=== PATIENT | male | born 1960 | race Caucasian/White ===

== ENCOUNTER 2017-06-18 11:27 | Inpatient (IN) | payer BC, OTHER ==
[2017-06-18] VITALS (13 sets, daily range): BP systolic 105–141; BP diastolic 66–87; PULSE 55–67; TEMP 36.6–36.7; O2SAT 94–99; Ht 175.3 cm; Wt 74.7 kg
[~2017-06-18] VITALS: Ht 175.3 cm; Wt 74.7 kg
[2017-06-18] MEDS ORDERED: NITROGLYCERIN 0.4 MG SL PER TAB CHARGE ONE (11:37)
[2017-06-18] MEDS ORDERED: CLOPIDOGREL BISULFATE 300 MG TAB PO ONE (11:40)
[2017-06-18] MEDS ORDERED: NiCARDipine HCL INJ 2.5 MG/ML 10 ML AMP ONE (11:56)
[2017-06-18] MEDS ORDERED: HEPARIN SOD (PORCINE) 1000 UNIT/ML 10 ML VIAL ONE (11:56)
[2017-06-18] MEDS ORDERED: NITROGLYCERIN/D5W 100MCG/ML 20ML SYR ONE (11:56)
[2017-06-18 11:57] LABS: ISTAT IONIZED CALCIUM 1.24 mmol/l (1.12-1.32); ISTAT POTASSIUM 3.6 mEq/L (3.3-5.0)
[2017-06-18] MEDS ORDERED: MIDAZOLAM HCL 1 MG/ML 2ML VIAL ONE (11:57)
[2017-06-18] MEDS ORDERED: FENTANYL CITRATE INJ 50 MCG/1 ML 2 ML VIAL ONE (11:57)
[2017-06-18] MEDS ORDERED: LIDOCAINE HCL 1% 20 ML VIAL ONE (11:57)
[2017-06-18] MEDS ORDERED: NITROGLYCERIN 0.4 MG SL PER TAB CHARGE SL PRN ×2 (12:00→13:15)
[2017-06-18 12:02] LABS: BASO % 0.2 %; BASO ABS # 0.02 K/uL (0-0.2); EOS % 1.2 %; EOS ABS # 0.12 K/uL (0-0.5); HEMATOCRIT 42.9 % (42-52); HEMOGLOBIN 15.6 g/dL (14.0-18.0); IG# 0.02 K/uL (0.00-0.02); LYMPH % 45.6 %; LYMPH ABS # 4.61 K/uL (1.2-3.4); MEAN CELL VOLUME 84.8 fL (80-100); MEAN CORPUSCULAR HEMOGLOBIN 30.8 pg (25-34); MEAN CORPUSCULAR HGB CONC 36.4 g/dl (32-36); MONO % 8.7 %; MONO ABS # 0.88 K/uL (0.11-0.59); NEUT % 44.1 %; NEUT ABS # 4.45 K/uL (1.4-6.5); PLATELET COUNT 185 K/uL (130-400); RED CELL DISTRIBUTION WIDTH CV 13.2 % (11.5-14.5); RED CELL DISTRIBUTION WIDTH SD 39.8 fL (36.4-46.3)
--- NOTE | 2017-06-18 12:02 | DIAGNOSTIC IMAGING REPORT ---
CHEST ONE VIEW PORTABLE HISTORY: 57 years-old Male 1 acute atypical chest pain COMPARISON: None available TECHNIQUE: Portable AP view of the chest FINDINGS: Cardiomediastinal and hilar silhouettes are within normal limits. No pneumothorax, pleural effusion, focal airspace consolidation or overt pulmonary edema. The bones of the chest appear grossly intact. IMPRESSION: No acute process. The above report was generated using voice recognition software. It may contain grammatical, syntax or spelling errors. Electronically signed by: Sy Liu M.D. 06/18/2017 12:00 PM Dictated Date/Time: 06/18/2017 11:59 AM
[2017-06-18 12:08] LABS: PTT PATIENT 25.2 SECONDS (21.0-31.0)
[2017-06-18 12:22] LABS: ALT/SGPT 25 U/L (12-78); AST/SGOT 13 U/L (15-37); BLOOD UREA NITROGEN 17 mg/dl (7-18); CALCIUM 8.7 mg/dl (8.5-10.1); CARBON DIOXIDE 26 mmol/L (21-32); CREATININE 1.05 mg/dl (0.60-1.40); GLUCOSE 104 mg/dl (70-99); LIPASE 106 U/L (73-393); POTASSIUM 3.6 mmol/L (3.5-5.1); SODIUM 142 mmol/L (136-145)
[2017-06-18 12:28] LABS: ALKALINE PHOSPHATASE 103 U/L (45-117); CKMB 1.4 ng/ml (0.5-3.6)
[2017-06-18] MEDS ORDERED: TICAGRELOR 90 MG TAB PO ONE (12:55)
--- NOTE | 2017-06-18 12:57 | EMERGENCY ROOM VISIT NOTE ---
History Report prepared by Julio: Amrik Contreras Under the Supervision of: Dr. Josh Stoner D.O. First contact with patient: 11:36 Chief Complaint: CHEST PAIN Stated Complaint: CHEST PAIN History of Present Illness The patient is a 57 year old male who presents to the Emergency Room with complaints of constant left chest pain for the past hour. The patient states that he was getting in and out of his truck this morning and started to get chest pain, and then afterwards pulled some weeds, and the chest pain continued. He states that the pain felt like a muscle cramp and pressure, and he states that the pain is going down his left arm. The patient additionally notes that he was nauseous after the chest pain started, though he did not vomit , and he was not short of breath and sweaty. He is currently complaining of a headache. The patient states that he took 4 aspirin prior to arrival. He states that he has no history of hypertension or high cholesterol, and he does not take any medications. The patient states that he does not smoke, though he uses chewing tobacco. He has a family history of heart disease and heart attacks. Source of History: patient Onset: an hour ago Position: chest (left) Quality: pressure, cramping Timing: constant Associated Symptoms: + headache, + nausea, No SOB, No vomiting Note: Associated symptoms: Left arm pain and sweating Review of Systems See HPI for pertinent positives & negatives. A total of 10 systems reviewed and were otherwise negative. Past Medical & Surgical Medical Problems: (1) Deviated septum Family History FH: heart attack Heart disease Social History Smoking Status: Never Smoker Marital Status: Housing Status: lives with family Occupation Status: employed Current/Historical Medications No Active Prescriptions or Reported Meds Allergies Coded Allergies: NO KNOWN DRUG ALLERGIES (Verified Allergy, Unknown, ., 06/19/15) Physical Exam Vital Signs Date Time Temp Pulse Resp B/P (MAP) Pulse Ox O2 Delivery O2 Flow Rate FiO2 06/18/17 12:08 55 18 129/89 06/18/17 12:05 57 06/18/17 11:58 58 18 135/78 100 Room Air 2.0 Nasal Cannula 06/18/17 11:57 100 Nasal Cannula 06/18/17 11:49 98 Nasal Cannula 2.0 06/18/17 11:47 59 18 143/90 95 Nasal Cannula 06/18/17 11:30 61 22 157/88 99 Room Air 06/18/17 11:30 98 Room Air Physical Exam CONSTITUTIONAL/VITAL SIGNS: Reviewed / noted above. GENERAL: Non-toxic in appearance. INTEGUMENTARY: Warm, dry, and [place]. HEAD: Normocephalic. EYES: without scleral icterus or trauma. ENT/OROPHARYNX: clear and moist. LYMPHADENOPATHY/NECK: Is supple without lymphadenopathy or meningismus. RESPIRATORY: Lungs clear and equal. CARDIOVASCULAR: Regular rate and rhythm. GI/ABDOMEN: Soft and nontender. No organomegaly or pulsatile mass. No rebound or guarding. Normal bowel sounds. EXTREMITIES: Warm and well perfused. BACK: No CVA tenderness. NEUROLOGICAL: Intact without focal deficits. PSYCHIATRIC: normal affect. MUSCULOSKELETAL: Normally developed with good muscle tone. Medical Decision & Procedures ER Provider Diagnostic Interpretation: Radiology results as stated below per my review and radiologist interpretation: CHEST ONE VIEW PORTABLE HISTORY: 57 years-old Male 1 acute atypical chest pain COMPARISON: None available TECHNIQUE: Portable AP view of the chest FINDINGS: Cardiomediastinal and hilar silhouettes are within normal limits. No pneumothorax, pleural effusion, focal airspace consolidation or overt pulmonary edema. The bones of the chest appear grossly intact. IMPRESSION: No acute process. The above report was generated using voice recognition software. It may contain grammatical, syntax or spelling errors. Electronically signed by: Sy Liu M.D. 06/18/2017 12:00 PM Dictated Date/Time: 06/18/2017 11:59 AM Laboratory Results 06/18/17 11:36 Red Blood Count 5.06, Mean Corpuscular Volume 84.8, Mean Corpuscular Hemoglobin 30.8, Mean Corpuscular Hemoglobin Concent 36.4, Mean Platelet Volume 9.0, Neutrophils (%) (Auto) 44.1, Lymphocytes (%) (Auto) 45.6, Monocytes (%) (Auto) 8.7, Eosinophils (%) (Auto) 1.2, Basophils (%) (Auto) 0.2, Neutrophils # (Auto) 4.45, Lymphocytes # (Auto) 4.61, Monocytes # (Auto) 0.88, Eosinophils # (Auto) 0.12, Basophils # (Auto) 0.02 06/18/17 11:36 Test 5/12/18 11:36 06/18/17 11:44 06/18/17 11:45 White Blood Count 10.10 K/uL (4.8-10.8) Red Blood Count 5.06 M/uL (4.7-6.1) Hemoglobin 15.6 g/dL (14.0-18.0) Hematocrit 42.9 % (42-52) Mean Corpuscular Volume 84.8 fL (80-100) Mean Corpuscular Hemoglobin 30.8 pg (25-34) Mean Corpuscular Hemoglobin Concent 36.4 g/dl (32-36) Platelet Count 185 K/uL (130-400) Mean Platelet Volume 9.0 fL (7.4-10.4) Neutrophils (%) (Auto) 44.1 % Lymphocytes (%) (Auto) 45.6 % Monocytes (%) (Auto) 8.7 % Eosinophils (%) (Auto) 1.2 % Basophils (%) (Auto) 0.2 % Neutrophils # (Auto) 4.45 K/uL (1.4-6.5) Lymphocytes # (Auto) 4.61 K/uL (1.2-3.4) Monocytes # (Auto) 0.88 K/uL (0.11-0.59) Eosinophils # (Auto) 0.12 K/uL (0-0.5) Basophils # (Auto) 0.02 K/uL (0-0.2) RDW Standard Deviation 39.8 fL (36.4-46.3) RDW Coefficient of Variation 13.2 % (11.5-14.5) Immature Granulocyte % (Auto) 0.2 % Immature Granulocyte # (Auto) 0.02 K/uL (0.00-0.02) Prothrombin Time 10.6 SECONDS (9.0-12.0) Prothromb Time International Ratio 1.0 (0.9-1.1) Activated Partial Thromboplast Time 25.2 SECONDS (21.0-31.0) Partial Thromboplastin Ratio 1.0 Est Creatinine Clear Calc Drug Dose 78.2 ml/min Estimated GFR () 89.6 Estimated GFR (Non- 77.3 BUN/Creatinine Ratio 16.2 (10-20) Calcium Level 8.7 mg/dl (8.5-10.1) Total Bilirubin 0.9 mg/dl (0.2-1) Direct Bilirubin 0.1 mg/dl (0-0.2) Aspartate Amino Transf (AST/SGOT) 13 U/L (15-37) Alanine Aminotransferase (ALT/SGPT) 25 U/L (12-78) Alkaline Phosphatase 103 U/L (45-117) Total Creatine Kinase 73 U/L (39-308) Creatine Kinase MB 1.4 ng/ml (0.5-3.6) Creatine Kinase MB Ratio 1.9 (0-3.0) Troponin I < 0.015 ng/ml (0-0.045) Total Protein 8.0 gm/dl (6.4-8.2) Albumin 4.0 gm/dl (3.4-5.0) Lipase 106 U/L (73-393) Bedside Troponin I < 0.030 ng/ml (0-0.045) Bedside Hemoglobin 14.6 g/dl (14.0-18.0) Bedside Hematocrit 43 % (42-52) Bedside Sodium 143 mEq/L (135-144) Bedside Potassium 3.6 mEq/L (3.3-5.0) Bedside Chloride 105 mEq/L (101-112) Bedside Total CO2 25 mEq/l (24-31) Anion Gap 18.0 mmol/L (16-25) Bedside Blood Urea Nitrogen 18 mg/dl (7-18) Bedside Creatinine 1.0 mg/dl (0.6-1.3) Bedside Glucose (other) 110 mg/dl (70-99) Bedside Ionized Calcium (Ishmael) 1.24 mmol/l (1.12-1.32) Laboratory results as stated above per my review. Medications Administered Medications (Trade) Dose Ordered Sig/Libby Route Start Time Stop Time Status Last Admin Dose Admin Nitroglycerin (Nitrostat Tab) 0.4 mg STK-MED ONCE .ROUTE 06/18/17 11:37 06/18/17 11:38 DC 06/18/17 11:37 0.4 MG Clopidogrel Bisulfate (plAVix TAB) 300 mg STK-MED ONCE PO 06/18/17 11:40 06/18/17 11:41 DC 06/18/17 11:43 300 MG ECG Per My Interpretation Indication: chest pain Rate (beats per minute): 60 Rhythm: sinus rhythm Findings: ST elevation (Anterolateral), no ectopy ED Course 1134: Previous medical records were reviewed. The patient was evaluated in room B1. A complete history and physical examination was performed. 1137: Nitroglycerin 0.4mg SL 1140: Discussed the patient's case with Dr. Toni Flanagan. The patient will be taken to the medical lab technician. I also ordered Plavix 300mg PO Medical Decision the differential was considered includes acute myocardial infarction, acute coronary syndrome, myocarditis, pericarditis, pericardial effusions /tamponade, esophageal perforation, thoracic aortic dissection, pulmonary embolism, pneumonia, pneumothorax, pancreatitis, shingles, acute cholecystitis, perforated abdominal viscus. This is a 57-year-old male who presents to the ED with a chief complaint of chest discomfort. The patient's symptoms started about an hour prior to arrival. There is little nausea associated with it and diaphoresis at first. He denies shortness of breath. He took 4 baby aspirin before he came in. The patient states that he chews snuff but does not smoke. He has no significant past medical history. The patient reports that he was doing minimal activity at the time of onset. His physical exam is normal. 12-lead EKG reveals findings suggesting acute anterior wall AL. Troponin is normal, CBC and complete metabolic panel were unremarkable. Shortly after the patient arrived in a 12-lead EKG was done, the patient was prepared for cardiac catheterization. Heart alert was called. Chest x-ray did not show acute process. The patient was evaluated in the emergency department by Dr. Muñoz who took him to the Track Grinder. Medication Reconcilliation Current Medication List: was personally reviewed by me Blood Pressure Screening Patient's blood pressure: Elevated blood pressure Blood pressure disposition: Elevated BP felt to be situational Consults Time Called: 1140 Consulting Physician: Dr. Toni Flanagan Returned Call: 1140 Discussed the patient's case with Dr. Toni Flanagan. The patient will be taken to the medical lab technician. Impression Primary Impression: Acute anterior wall AL Critical Care I have personally 30 minutes of critical care time in the direct management of this patient. This includes bedside care, interpretation of diagnostic studies , and testing, discussion with consultants, patient, and family members, and other required patient management activities. This 30 minutes is in excess of all separately billable procedures. Scribe Attestation The scribe's documentation has been prepared under my direction and personally reviewed by me in its entirety. I confirm that the note above accurately reflects all work, treatment, procedures, and medical decision making performed by me. Departure Information Dispostion Other (Track Grinder) Prescriptions No Active Prescriptions or Reported Meds Referrals Johan Grant M.D. (PCP) Forms Call Back Authorization, HOME CARE DOCUMENTATION FORM, IMPORTANT VISIT INFORMATION Patient Instructions My [facility]
--- NOTE | 2017-06-18 13:05 | Post Sedation Assessment ---
Post Sedation Assessment General Date of Sedation June 18, 2017. Vital Signs: Vital Signs Past 12 Hours Date Time Temp Pulse Resp B/P (MAP) Pulse Ox O2 Delivery O2 Flow Rate FiO2 06/18/17 12:08 55 18 129/89 06/18/17 12:05 57 06/18/17 11:58 58 18 135/78 100 Room Air 2.0 Nasal Cannula 06/18/17 11:57 100 Nasal Cannula 06/18/17 11:49 98 Nasal Cannula 2.0 06/18/17 11:47 59 18 143/90 95 Nasal Cannula 06/18/17 11:30 61 22 157/88 99 Room Air 06/18/17 11:30 98 Room Air Post Procedure Recovery Score Activity: (2) Moves 4 extremities * Respiration: (2) Deep breath/cough Circulation: (2) +/-20% PreAnes Value Consciousness: (2) Fully Awake Oxygen Saturation: (2) > 92% On Room Air Discharge Sedation Level of Care: Fast Track Phase II Post Sedation Plan On clinical assessment, the patient appears to have tolerated the sedation without complications. Patient is recovering as anticipated. Patient will continue to be monitored by nursing and may be discharged when sedation discharge criteria are met per below protocol. Upon Completions of procedure and additional 15 minutes continue every 5 minute vital signs and the P.A.R. score; then discharge to a Phase I or Fast Track to Phase II per the following guidelines: * Discharge Patient to appropriate Phase II area if PAR is 8 or greater or return to pre- procedure baseline. The post - procedure orders will be as directed. * If PAR score is less than 8 or not return to pre-procedure baseline then patient will follow Phase I monitoring till PAR is reached for Phase II. The Phase I may be done in procedure room or may call to secure a Phase I area. * If naloxone or flumazenil are used for reversal, hold in Phase I for an additional 60 -120 minutes before discharge to Phase II. Please call the Sedation Physician to re-evaluate and complete post-note for discharge to Phase II area. Do NOT discharge from procedure sedation or Phase 1 until post- sedation evaluation note is complete by procedure /sedation MD Sedation Discharge Instructions to be given to the patient at discharge to home.
--- NOTE | 2017-06-18 13:05 | Pre Sedation Assessment ---
Pre Sedation Assessment General Date of Sedation: June 18, 2017. Vital Signs Past 12 Hours Date Time Temp Pulse Resp B/P (MAP) Pulse Ox O2 Delivery O2 Flow Rate FiO2 06/18/17 12:08 55 18 129/89 06/18/17 12:05 57 06/18/17 11:58 58 18 135/78 100 Room Air 2.0 Nasal Cannula 06/18/17 11:57 100 Nasal Cannula 06/18/17 11:49 98 Nasal Cannula 2.0 06/18/17 11:47 59 18 143/90 95 Nasal Cannula 06/18/17 11:30 61 22 157/88 99 Room Air 06/18/17 11:30 98 Room Air Review Cardiovascular: regular rate, rhythm, no edema Lungs: chest non-tender, lungs clear Pre-Sedation Airway Assessment Smoking Status: Never Smoker Hx of Sleep Apnea: No Hx of difficult intubation: No Short Thick Neck: No Thyro-mental Distance: > 3 Finger Breadths Oral Cavity: WNL Mallampati Classification: Class III ASA Classification: Class III Procedure Planning Contraindications for Sedation: None Current Medications Reviewed: Yes Notes The planned sedation has been discussed with the patient. Informed Consent was obtained. I have identified the patient, determined the appropriateness of sedation and have assessed the patient immediately prior to the procedure. All medicine(s) and interventions are by my order.
--- NOTE | 2017-06-18 13:07 | [facility] Post Operative Brief Note ---
Preliminary Procedure Note Procedure Date June 18, 2017. Pre-Procedure Diagnosis STEMI AUC Score 9 Post-Procedure Diagnosis Severe CAD, Successful PCI, Normal Intracardiac Pressures Procedure(s) Performed Coronary Angiography, Left Heart Cath, Drug Eluting Stent Rod Cup Filler Toni Technical Cable Jointer(s) Estimated Blood Loss Medication(s) Fentanyl, Heparin, Nicardipine, Nitroglycerin, Versed, Lidocaine 1% Ticagrelor Preliminary Findings Anterior STEMI 100% acute occlusion mid LAD. Successful PCI of mid LAD with single INGRID. Recommendations PCI without planned CABG Specimens None Anesthesia Moderate Procedural Complication(s) None Disposition ICU
[2017-06-18] MEDS ORDERED: ACETAMINOPHEN 325 MG TAB PO PRN (13:15)
[2017-06-18] MEDS ORDERED: ONDANSETRON INJ 2 MG/ML 2 ML VIAL IV PRN (13:15)
[2017-06-18] MEDS ORDERED: SODIUM CHLORIDE 0.9% 1000ML 1,000 ML IV SCH (14:30)
--- NOTE | 2017-06-18 15:05 | History and Physical ---
History & Physical Date & Time of Service: June 18, 2017 at 14:34 Chief Complaint: Acute Anterior Wall Mi Primary Care Physician: Johan Grant M.D. History of Present Illness Source: patient This is a 57 yo M with limited PMHx including chewing tobacco 1/2 can daily since age 12, who presented for acute onset of chest pain, diagnosed with STEMI and taken to the microbiology lab analyst by Dr. Muñoz on 06/18/17, where 1 INGRID was placed in the mid LAD. He reports this morning around 10am he was getting off his tractor and into a truck when he developed acute onset of left sided chest pain with radiation to the shoulder. It did not extend into his neck or jaw. Pain seemed to be persistent and did not improve until he arrived at the ER. He admits to nausea but no vomiting. EKG was completed and showed STEMI. Pt was administered nicardipine 25 mg IV and loaded with Plavix 300 mg x 1 and taken to Cath. He has been started on Brilinta 90 mg BID. Pt reports he was told to take a statin in the past, but was not interested in taking this type of medication as his experienced insomnia from a statin previously. He denies any first degree relatives with cardiac disease. His mother was diagnosed with high blood pressure but is alive and well. He is the oldest of his siblings. was present at bedside and all their questions and concerns were addressed. Past Medical/Surgical History Medical Problems: (1) Deviated septum Acute STEMI Chronic chewing tobacco use Family History FH: heart attack Heart disease Social History Smoking Status: Never Smoker Smokeless Tobacco Use: Yes Alcohol Use: none Drug Use: none Marital Status: Housing status: lives with family Occupational Status: employed Allergies Coded Allergies: NO KNOWN DRUG ALLERGIES (Verified Allergy, Unknown, ., 06/19/15) Home Medications No Active Prescriptions or Reported Meds Review of Systems Constitutional: No fever, No chills, No sweats Eyes: No redness, No diplopia ENT: No sore throat, No trouble swallowing Respiratory: No cough, No shortness of breath Cardiovascular: No chest pain, No edema, No palpitations Abdomen: No pain, No nausea, No vomiting, No diarrhea, No constipation Musculoskeletal: No joint pain, No swelling, No calf pain Neurologic: No weakness, No numbness/tingling Psychiatric: No depression symptoms, No anxiety Endocrine: No fatigue Hematologic / Lymphatic: No abnormal bleeding/bruising, No clotting problems Integumentary: No rash, No itch Physical Exam Vital Signs Date Time Temp Pulse Resp B/P (MAP) Pulse Ox O2 Delivery O2 Flow Rate FiO2 06/18/17 14:15 62 22 123/75 (91) 98 Room Air 06/18/17 14:00 58 22 114/75 (88) 98 Room Air 06/18/17 13:45 55 22 117/73 (88) 98 Room Air 06/18/17 13:30 56 22 105/76 (86) 98 Room Air 06/18/17 13:15 36.6 55 24 105/76 98 Room Air 06/18/17 13:15 36.6 55 24 105/76 (86) 98 Room Air 06/18/17 12:08 55 18 129/89 06/18/17 12:05 57 06/18/17 11:58 58 18 135/78 100 Room Air 2.0 Nasal Cannula 06/18/17 11:57 100 Nasal Cannula 06/18/17 11:49 98 Nasal Cannula 2.0 06/18/17 11:47 59 18 143/90 95 Nasal Cannula 06/18/17 11:30 61 22 157/88 99 Room Air 06/18/17 11:30 98 Room Air General Appearance: WD/WN, no apparent distress Head: normocephalic, atraumatic Eyes: PERRL, EOMI ENT: hearing grossly normal, pharynx normal Neck: supple, no JVD Respiratory/Chest: lungs clear, normal breath sounds, no respiratory distress, no accessory muscle use, + pertinent finding (on RA) Cardiovascular: regular rate, rhythm, no edema, no murmur, normal peripheral pulses Abdomen/GI: normal bowel sounds, non tender, soft Back: normal inspection Extremities/Musculoskelatal: no calf tenderness, normal capillary refill, no pedal edema, + pertinent finding (TR band over R wrist, no surrounding ecchymosis) Neurologic/Psych: alert, normal mood/affect, oriented x 3 Skin: normal color Diagnostics Laboratory Results Results Past 24 Hours Test 06/18/17 11:36 06/18/17 11:44 06/18/17 11:45 06/18/17 12:33 Range/Units White Blood Count 10.10 4.8-10.8 K/uL Red Blood Count 5.06 4.7-6.1 M/uL Hemoglobin 15.6 14.0-18.0 g/dL Hematocrit 42.9 42-52 % Mean Corpuscular Volume 84.8 80-100 fL Mean Corpuscular Hemoglobin 30.8 25-34 pg Mean Corpuscular Hemoglobin Concent 36.4 32-36 g/dl Platelet Count 185 130-400 K/uL Mean Platelet Volume 9.0 7.4-10.4 fL Neutrophils (%) (Auto) 44.1 % Lymphocytes (%) (Auto) 45.6 % Monocytes (%) (Auto) 8.7 % Eosinophils (%) (Auto) 1.2 % Basophils (%) (Auto) 0.2 % Neutrophils # (Auto) 4.45 1.4-6.5 K/uL Lymphocytes # (Auto) 4.61 1.2-3.4 K/uL Monocytes # (Auto) 0.88 0.11-0.59 K/uL Eosinophils # (Auto) 0.12 0-0.5 K/uL Basophils # (Auto) 0.02 0-0.2 K/uL RDW Standard Deviation 39.8 36.4-46.3 fL RDW Coefficient of Variation 13.2 11.5-14.5 % Immature Granulocyte % (Auto) 0.2 % Immature Granulocyte # (Auto) 0.02 0.00-0.02 K/uL Prothrombin Time 10.6 9.0-12.0 SECONDS Prothromb Time International Ratio 1.0 0.9-1.1 Activated Partial Thromboplast Time 25.2 21.0-31.0 SECONDS Partial Thromboplastin Ratio 1.0 Sodium Level 142 136-145 mmol/L Potassium Level 3.6 3.5-5.1 mmol/L Chloride Level 110 98-107 mmol/L Carbon Dioxide Level 26 21-32 mmol/L Anion Gap 6.0 18.0 16-25 mmol/L Blood Urea Nitrogen 17 7-18 mg/dl Creatinine 1.05 0.60-1.40 mg/dl Est Creatinine Clear Calc Drug Dose 78.2 ml/min Estimated GFR () 89.6 Estimated GFR (Non- 77.3 BUN/Creatinine Ratio 16.2 10-20 Random Glucose 104 70-99 mg/dl Calcium Level 8.7 8.5-10.1 mg/dl Total Bilirubin 0.9 0.2-1 mg/dl Direct Bilirubin 0.1 0-0.2 mg/dl Aspartate Amino Transf (AST/SGOT) 13 15-37 U/L Alanine Aminotransferase (ALT/SGPT) 25 12-78 U/L Alkaline Phosphatase 103 45-117 U/L Total Creatine Kinase 73 39-308 U/L Creatine Kinase MB 1.4 0.5-3.6 ng/ml Creatine Kinase MB Ratio 1.9 0-3.0 Troponin I < 0.015 0-0.045 ng/ml Total Protein 8.0 6.4-8.2 gm/dl Albumin 4.0 3.4-5.0 gm/dl Lipase 106 73-393 U/L Bedside Troponin I < 0.030 0-0.045 ng/ml Bedside Hemoglobin 14.6 14.0-18.0 g/dl Bedside Hematocrit 43 42-52 % Bedside Sodium 143 135-144 mEq/L Bedside Potassium 3.6 3.3-5.0 mEq/L Bedside Chloride 105 101-112 mEq/L Bedside Total CO2 25 24-31 mEq/l Bedside Blood Urea Nitrogen 18 7-18 mg/dl Bedside Creatinine 1.0 0.6-1.3 mg/dl Bedside Glucose (other) 110 70-99 mg/dl Bedside Ionized Calcium (Ishmael) 1.24 1.12-1.32 mmol/l Kaolin Activated Coagulation Time 257 94-140 SECONDS Test 06/18/17 13:59 Range/Units Diagnostic Radiology CHEST ONE VIEW PORTABLE HISTORY: 57 years-old Male 1 acute atypical chest pain COMPARISON: None available TECHNIQUE: Portable AP view of the chest FINDINGS: Cardiomediastinal and hilar silhouettes are within normal limits. No pneumothorax, pleural effusion, focal airspace consolidation or overt pulmonary edema. The bones of the chest appear grossly intact. IMPRESSION: No acute process. The above report was generated using voice recognition software. It may contain grammatical, syntax or spelling errors. Electronically signed by: Sy Liu M.D. 06/18/2017 12:00 PM Dictated Date/Time: 06/18/2017 11:59 AM The status of this report is Signed. EKG Normal sinus rhythm Anterior infarct , possibly acute ACUTE [place] / STEMI Abnormal ECG No previous ECGs available Vent. rate 60 BPM WV interval 158 ms QRS duration 100 ms QT/QTc 410/410 ms P-R-T axes -7 84 44 Impression Assessment and Plan This is a 57 yo M with limited PMHx including chewing tobacco 1/2 can daily since age 12, who presented for acute onset of chest pain, diagnosed with STEMI and taken to the microbiology lab analyst by Dr. Muñoz on 06/18/17, where 1 INGRID was placed in the mid LAD. STEMI - Admit to ICU - S/p 1 INGRID to the LAD by Dr. Muñoz on 06/18/17 - Loaded with plavix and started on Brilinta 90 mg BID, atorvastatin 80 mg daily , asa 81 mg daily, metoprolol 12.5 mg PO BID, lisinopril 5 mg daily - Trend troponins until peak - Pt will need medication compliance encouragement throughout hospital stay and close follow up. - Cardiac rehab consult per Cardiology - Follows with Dr. Johan Grant as outpatient - Check A1C and Lipid panel for risk stratification - Follow am cbc and prp - VSS Chronic Tobacco Use - Risk factors include chewing tobacco 1/2 can per day - cessation encouraged, currently pt denies need for nicotine replacement DVT ppx: plavix/brilinta, teds, scds CODE: FULL Disposition: From home Resident Physician Supervision Note: I was present with Dr. Macey Singer during the history and exam. I discussed the case with the PA and agree with the findings and plan as documented in the note. 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 Pt was emergently transported to the microbiology lab analyst and received a single INGRID to his mid LAD. He is recovering well and does not have any complaints aside for mild chest soreness at the time of medical evaluation. OE Pleasant, middle-aged male - AAO x 3 S1,2 R CTAB NT, ND No CCE No deficits P: Placed in Brilinta, ASA, B dougie, statin post cath Pt is stable and will follow with scientific writer on DC barring any complications Documented By: Dandre Estes Advanced Directives Existing Living Will: No Existing Power of Regulatory And Compliance Technician: No Resuscitation Status VTE Prophylaxis Will order VTE Prophylaxis: Yes
--- NOTE | 2017-06-18 18:07 | Cardiac Catheterization ---
Procedure Note Procedure Date June 18, 2017. Pre-Procedure Diagnosis STEMI AUC Score 9 Post-Procedure Diagnosis Severe CAD, Normal Intracardiac Pressures Procedure(s) Performed Coronary Angiography, Left Heart Cath, Drug Eluting Stent, Radial Artery Angiography Personal Investment Adviser Toni Mill Controller(s) Galina Estimated Blood Loss 15 Medication(s) Fentanyl, Heparin, Nicardipine, Nitroglycerin, Versed, Lidocaine 1% Ticagrelor Summary of Findings Indication: STEMI/Heart Alert Access: 6Fr right radial artery Catheters: EBU 3.5 guide; JR4, pigtail diagnostics Findings: LM - Short, luminal irregularities LAD - Moderate caliber vessel, 40-50% late-proximal stenosis with diffuse early- mid segment disease prior to 100% acute mid occlusion at take-off of small 2nd diagonal Circumflex - Large caliber vessel, 20% proximal disease; luminal irregularities in mid segment and large OM3. RCA - Very large caliber vessel, dominant, luminal irregularities; minimal disease in R-PDA and PLBs LVEDP - 13 LVEF 50% -- PCI -- Antithrombotic therapy: Heparin, Ticagrelor Procedure: LM cannulated with EBU 3.5 guide BMW wire passed across lesion into distal vessel Mid LAD lesion predilated with 2.5 compliant balloon Dilated lesion stented with 3.0 x 28 Xience INGRID across take-off of moderate 3rd diagonal Stent post-dilated with 3.0 noncompliant balloon IC vasodilators administered for spasm Post procedure YORDAN 3 flow, stent well expanded with minimal residual stenosis and no apparent cardiac complications. Arterial Closure: TR Band Summary: 1. Anterior STEMI/Occluded Mid LAD 2. Moderate proximal LAD disease 3. Minimal non-culprit vessel disease 4. Normal intracardiac filling pressure. Preserved LV function (LVEF 50%). 5. Successful PCI of mid LAD with single drug-eluting stent (3.0 x 28 Xience INGRID ). Recommendations: Admit to ICU for continued monitoring Loaded with Ticagrelor 180mg in physical laboratory assistant Continue dual-antiplatelet therapy for at least 1 year. Trend troponins until peak, Check Echo Uptitrate beta-dougie/CHELSEA as BP allows High-dose statin Consult cardiac Rehab Hemodynamics Rest Ao: 118/50/81 Final Ao: 90/65/77 LV: 90/13 Recommendations PCI without planned CABG Specimens None Radiation Exposure (mGy) 1806 Contrast (mls) 120 opti Drains None Anesthesia Moderate Procedural Complication(s) None Disposition ICU ACC Data Cardiac Status Clinical evaluation leading to the procedure CAD Presntation: STEMI STEMI or Non-STEMI: Symptom Onset Date/Time: 10:00 Anginal Classification: CCS IV Heart Failure: No, NYHA Class: CCS I Cardiogenic Shock w/in 24Hrs: No Cardiac Arrest w/in 24Hrs: No Imaging studies past 6 months: No Stress studies past 6 months: No Left Ventricular Angiography EF (%): 50 Diagnostic Status: Emergency Closure Device Percutaneous Entry Location: Radial Closure Device: Radial Band Recommendations: PCI without planned CABG PCI Indication: Immediate PCI for STEMI First Noted: First EKG Lesion Segment Name: Mid LAD Culprit Artery: Yes Stenosis Prior to Rx (%): 100 Chronic Total Occlusion: No IVUS: No FFR: No Pre-Procedure YORDAN Flow: 0 Previously Treated Lesion: No Lesion Complexity: Non-High/Non-C Lesion Length (mm): 18 Thrombus Present: Yes Bifurcation Lesion: No Guidewire Across Lesion: Yes Guidewire: Stenosis Post-Procedure (%): 0 Post-Procedure YORDAN Flow: 3 Device(s) Deployed: Yes Intraprocedure Events Significant Dissection: No Perforation: No
--- NOTE | 2017-06-18 18:28 | Critical Care Consultation ---
Critical Care Consultation Date of Consultation: June 18, 2017. Attending Physician: Harjeet Muñoz MD Reason for Consultation: Monitor s/p STEMI and PCI History of Present Illness 57 yo male presents in stable condition following cardiac catheterization and stent placement. 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 The patient has a PMH significant for untreated HLD, as well as known atherosclerotic disease diagnosed following a MRA of his carotids in 2012. The patient had regular medical follow up, but has a limited medical history and was not on any medications prior to this hospitalization. He remarks that he opted not to taking a statin because of the side effects his had experienced. His family history is significant for triple vessel disease in his mother. On arrival to the ICU, the patient is in good spirits and denies any acute symptoms; no chest pain, SOB or lower ext. swelling. He did mention that he was having left eye visual changes that he characterized as a blurry wave like pattern in his left upper visual field. He says that he has had this symptom in the past and has discussed it with his primary care doctor. The patient endorses yearly eye checks and wear corrective lens for reading only. He denies eye pain, black out of vision, central scotoma or curtain draw effect. He remarks that these symptoms happen a couple times a year and felt that it was worth mentioning in the context of a STEMI. Past Medical/Surgical History HLD, CAD, carotid artery stenosis, chewing tobacco--half a can for 45 years Family History FH: heart attack Heart disease Social History Smoking Status: Never Smoker Smokeless Tobacco Use: Yes Alcohol Use: none Drug Use: none Marital Status: Housing Status: lives with family Occupation Status: employed Allergies Coded Allergies: NO KNOWN DRUG ALLERGIES (Verified Allergy, Unknown, ., 06/19/15) Home Medications No Active Prescriptions or Reported Meds Current Inpatient Medications Current Inpatient Medications Medications (Trade) Dose Ordered Sig/Libby Route Start Time Stop Time Status Last Admin Dose Admin Nitroglycerin (Nitrostat Tab) 0.4 mg PRN PRN SL 06/18/17 12:00 07/18/17 11:59 Nitroglycerin (Nitrostat Tab) 0.4 mg UD PRN SL 06/18/17 13:15 07/18/17 13:14 Sodium Chloride 1,000 ml @ 100 mls/hr Q10H IV 06/18/17 14:30 06/18/17 21:59 06/18/17 14:45 100 MLS/HR Ondansetron HCl (Zofran Inj) 4 mg Q6H PRN IV 06/18/17 13:15 07/18/17 13:14 Aspirin (Ecotrin Tab) 81 mg QAM PO 06/19/17 09:00 07/19/17 08:59 Atorvastatin Calcium (Lipitor Tab) 80 mg QAM PO 06/19/17 09:00 07/19/17 08:59 Metoprolol Tartrate (Lopressor Tab) 12.5 mg Q12 PO 06/18/17 21:00 07/18/17 20:59 Lisinopril (Zestril Tab) 5 mg QAM PO 06/19/17 09:00 07/19/17 08:59 Acetaminophen (Tylenol Tab) 650 mg Q4H PRN PO 06/18/17 13:15 07/18/17 13:14 Ticagrelor (Brilinta Tab) 90 mg BID PO 06/18/17 21:00 07/18/17 20:59 Review of Systems Constitutional: No fever, No chills, No sweats Respiratory: No cough, No sputum, No shortness of breath, No dyspnea on exertion, No dyspnea at rest, No hemoptysis Cardiovascular: No chest pain Abdomen: No pain, No nausea, No vomiting, No diarrhea Genitourinary - Male: No hematuria Physical Exam Date Time Temp Pulse Resp B/P (MAP) Pulse Ox O2 Delivery O2 Flow Rate FiO2 06/18/17 17:00 58 22 135/80 (98) 98 Room Air 06/18/17 16:00 36.6 62 22 129/87 (101) 98 Room Air 06/18/17 16:00 Room Air 06/18/17 15:00 60 22 121/81 (94) 98 Room Air 06/18/17 14:30 66 22 123/72 (89) 98 Room Air 06/18/17 14:15 62 22 123/75 (91) 98 Room Air 06/18/17 14:00 58 22 114/75 (88) 98 Room Air 06/18/17 13:45 55 22 117/73 (88) 98 Room Air 06/18/17 13:30 56 22 105/76 (86) 98 Room Air 06/18/17 13:15 36.6 55 24 105/76 98 Room Air 06/18/17 13:15 36.6 55 24 105/76 (86) 98 Room Air 06/18/17 12:08 55 18 129/89 06/18/17 12:05 57 06/18/17 11:58 58 18 135/78 100 Room Air 2.0 Nasal Cannula 06/18/17 11:57 100 Nasal Cannula 06/18/17 11:49 98 Nasal Cannula 2.0 06/18/17 11:47 59 18 143/90 95 Nasal Cannula 06/18/17 11:30 61 22 157/88 99 Room Air 06/18/17 11:30 98 Room Air General Appearance: well-appearing, WD/WN Neck: normal range of motion, no tenderness, trachea midline, no stridor, supple, no lymphadenopathy Cardiovasular: regular rate/rhythm, normal S1S2, no M/G/R Abdomen: non tender, normal bowel sounds, no rebound, no masses, no guarding, no organomegaly Lower Extremities: no edema Laboratory Results Last 24 Hours Test 06/18/17 11:36 06/18/17 11:44 06/18/17 11:45 06/18/17 12:33 White Blood Count 10.10 K/uL Red Blood Count 5.06 M/uL Hemoglobin 15.6 g/dL Hematocrit 42.9 % Mean Corpuscular Volume 84.8 fL Mean Corpuscular Hemoglobin 30.8 pg Mean Corpuscular Hemoglobin Concent 36.4 g/dl Platelet Count 185 K/uL Mean Platelet Volume 9.0 fL Neutrophils (%) (Auto) 44.1 % Lymphocytes (%) (Auto) 45.6 % Monocytes (%) (Auto) 8.7 % Eosinophils (%) (Auto) 1.2 % Basophils (%) (Auto) 0.2 % Neutrophils # (Auto) 4.45 K/uL Lymphocytes # (Auto) 4.61 K/uL Monocytes # (Auto) 0.88 K/uL Eosinophils # (Auto) 0.12 K/uL Basophils # (Auto) 0.02 K/uL RDW Standard Deviation 39.8 fL RDW Coefficient of Variation 13.2 % Immature Granulocyte % (Auto) 0.2 % Immature Granulocyte # (Auto) 0.02 K/uL Prothrombin Time 10.6 SECONDS Prothromb Time International Ratio 1.0 Activated Partial Thromboplast Time 25.2 SECONDS Partial Thromboplastin Ratio 1.0 Sodium Level 142 mmol/L Potassium Level 3.6 mmol/L Chloride Level 110 mmol/L Carbon Dioxide Level 26 mmol/L Anion Gap 6.0 mmol/L 18.0 mmol/L Blood Urea Nitrogen 17 mg/dl Creatinine 1.05 mg/dl Est Creatinine Clear Calc Drug Dose 78.2 ml/min Estimated GFR () 89.6 Estimated GFR (Non- 77.3 BUN/Creatinine Ratio 16.2 Random Glucose 104 mg/dl Calcium Level 8.7 mg/dl Total Bilirubin 0.9 mg/dl Direct Bilirubin 0.1 mg/dl Aspartate Amino Transf (AST/SGOT) 13 U/L Alanine Aminotransferase (ALT/SGPT) 25 U/L Alkaline Phosphatase 103 U/L Total Creatine Kinase 73 U/L Creatine Kinase MB 1.4 ng/ml Creatine Kinase MB Ratio 1.9 Troponin I < 0.015 ng/ml Total Protein 8.0 gm/dl Albumin 4.0 gm/dl Lipase 106 U/L Bedside Troponin I < 0.030 ng/ml Bedside Hemoglobin 14.6 g/dl Bedside Hematocrit 43 % Bedside Sodium 143 mEq/L Bedside Potassium 3.6 mEq/L Bedside Chloride 105 mEq/L Bedside Total CO2 25 mEq/l Bedside Blood Urea Nitrogen 18 mg/dl Bedside Creatinine 1.0 mg/dl Bedside Glucose (other) 110 mg/dl Bedside Ionized Calcium (Ishmael) 1.24 mmol/l Kaolin Activated Coagulation Time 257 SECONDS Test 06/18/17 13:59 06/18/17 15:55 Troponin I 146.000 ng/ml Urine Color YELLOW Urine Appearance CLEAR Urine pH 5.5 Urine Specific Brule > 1.045 Urine Protein NEG Urine Glucose (UA) NEG Urine Ketones NEG Urine Occult Blood 1+ Urine Nitrite NEG Urine Bilirubin NEG Urine Urobilinogen NEG Urine Leukocyte Esterase NEG Urine WBC (Auto) 1-5 /hpf Urine RBC (Auto) 0-4 /hpf Urine Hyaline Casts (Auto) 1-5 /lpf Urine Epithelial Cells (Auto) 10-20 /lpf Urine Bacteria (Auto) NEG Assessment & Plan 57 yo male presents to the ICU for monitoring s/p CABG, PCI and stent placement Assessment; The patient is doing well following the procedure. He is hemodynamically stable and no events on the monitor. He does complain of intermittent visual changes in the left eye, superolateral visual field. He has had these symptoms intermittently over the past year. His exam was benign; non- painful, non-firm eyes, PERRL, EOMI, and intact visual natarajan. The differential included glaucoma, retinal detachment, migraine aura and retinal artery occlusion. We ordered visual acuity testing, ophthalmic consultation and will frequent follow up with the sx while on the unit. NEURO -Patient is alert and oriented, answering questions appropriately -He does c/o left eye, superolateral visual field changes described as wavy lines--symptoms appear to chronic -Visual acuity testing, ophthalmology consult placed CARDIAC -STEMI-- mid LAD-- PCI with single drug-eluting stent -Hemodynamically stable, HR 60-65, SBP 115-130 DBP 75-80 -Post STEMI regimen--Dual anticoagulant tx--Brilinta/ASA, Lipitor, Lopressor, Zestril, Nitro for PRN chest pain -Carotid dopplers ordered -Lipids ordered PULM -CXR-no acute process, 98% on RA GI -No ulcer ppx indicated Renal/lytes -No electrolyte derangements -Follow and replete -UA negative for infection Endo -No h/o of DM -A1C ordered Heme -15.6 Hgb, 42.9 HCT ID -No signs or sx of infection; unremarkable UA an CXR -WBC 10.10, afebrile Line/DVTppx -PIV Resuscitation -Full code Dr. Montgomery was resident physician during care of patient. I separately evaluated patient and did history and exam. I discussed the case with the resident and generally agree with the findings and plan. Patient was complaining of a acute visual disturbance. He described the disturbance as a blurred wavy line in his vision which has occurred previously. He has not sought medical treatment for this at any point, the whole episode lasted 5-10 minutes. It is not associated with pain, there is no headache, there is no dizziness. He reported the visual disturbance completely resolved prior to my physical exam. Pupils are equal round reactive to light and accommodation, extraocular muscles are intact, visual natarajan are normal tested to confrontation. I have ordered a visual acuity to be performed Ophthalmoscopic exam bilaterally did not reveal any evidence of retinal vein occlusion nor central retinal retinal artery occlusion, the eyes were palpated and soft bilaterally, no indication of glaucoma The sclera was not injected, the lids appeared normal. I do not believe the patient's pathology is entry level marketing representative of glaucoma or retinal detachment nor retinal vein or artery occlusion. Patient could be at risk for retinal artery embolism given his recent cardiac cath, however his visual natarajan are reported to be normal at this time and I did not see any evidence on ophthalmoscopic exam. At this time I placed a routine consult ophthalmology. Patient is critically ill due to an ST elevation PR status post percutaneous coronary intervention with drug-eluting stent and transient visual disturbances status post cardiac cath. I have personally spent 40 minutes of critical care time in the direct management of this patient. This is a life/limb threatening event. This includes time spent evaluating patient, direct bedside care, chart review, placing orders, interpretation of diagnostic studies, discussion with consultants, patient, and/or family members regarding treatment decisions, as well as other required patient management activities. This time is exclusive of all separately billable procedures, and teaching time and separate from and in addition to any other critical care service time.
[2017-06-18] MEDS ORDERED: MoRPHine SULFATE 4 MG/ML 1 ML CARP\\VIAL IV PRN (20:15)
[2017-06-18] MEDS: ACETAMINOPHEN 325 MG TAB PO PRN (20:22)
[2017-06-18] MEDS: METOPROLOL TARTRATE 25 MG TAB PO SCH (20:23)
[2017-06-18] MEDS: TICAGRELOR 90 MG TAB PO SCH (20:23)
--- NOTE | 2017-06-18 22:22 | CARDIOLOGY CONSULTATION ---
DATE OF CONSULTATION: 06/18/2017 CONSULTATION REQUESTED BY: Josh Stoner MD REASON FOR CONSULTATION: Heart alert/anterior STEMI. HISTORY OF PRESENT ILLNESS: Mr. Reeves is a 57-year-old man with a history of dyslipidemia, not on any therapy, longstanding smokeless tobacco use who presented this morning with acute onset of chest pain for approximately an hour and a half prior to presentation. On arrival, he was noted to have diffuse anterior ST elevations and a heart alert was activated. Emergent cardiac catheterization revealed an occluded mid LAD which was treated with 1 drug-eluting stent with good angiographic result. Post-procedure, he was chest pain free, hemodynamically and electrically stable. His LV filling pressures were normal and LV function appeared preserved on LV gram. Transferred to ICU post procedure. PAST MEDICAL HISTORY: Dyslipidemia. The patient denies any other significant medical history. FAMILY HISTORY: The patient denies any first degree relatives with premature coronary artery disease. SOCIAL HISTORY: Reports using smokeless tobacco since age 12. Denies ever smoking. Denies alcohol use or illicit drugs. He is and lives with his . REVIEW OF SYSTEMS: Completed in the setting of emergent situation. MEDICATIONS: None. ALLERGIES: No known drug allergies. PHYSICAL EXAMINATION: VITAL SIGNS: Temperature 36.6, pulse 55, blood pressure 105/76, satting 98% on room air. GENERAL: Initially the patient appeared uncomfortable, diaphoretic, but in no apparent distress. HEENT: His sclerae anicteric. His oropharynx is clear. His mucous membranes are moist. NECK: Supple with no JVD. LUNGS: Clear to auscultation bilaterally. CARDIAC: Regular to bradycardic with no murmurs, rubs or gallops. ABDOMEN: Soft and nontender. EXTREMITIES: Warm. He had intact distal pulses including 2+ radial pulses bilaterally. SKIN: Showed no rashes or lesions. NEUROLOGIC: Nonfocal. LABORATORY DATA: Sodium 143, potassium 3.6, BUN of 18, creatinine 1.0. His initial point of care troponin was negative. White blood cell count 10.1, hemoglobin of 15.6, platelets of 185. Chest x-ray showed no acute cardiopulmonary process. EKG showed a sinus rhythm at a ventricular rate of [address] elevations in V3 through V5 with a tall peaked T waves. IMPRESSION AND PLAN: 1. Anterior ST-elevation myocardial infarction. 2. Occluded mid left anterior descending treated with 1 drug-eluting stent. 3. Moderate nonobstructive proximal left anterior descending disease. 4. Preserved left ventricular function. 5. Dyslipidemia. Mr. Reeves presented today with acute onset chest pain, was found to have anterior ST elevation NE in the setting of occluded mid LAD which was treated with 1 drug-eluting stent. The patient did well through procedure and is hemodynamically and electrically stable post-procedure without any chest pain. Going forward, will plan to admit to ICU for continued monitoring. Plan to trend troponins until peak. We will obtain an echocardiogram in the a.m. The patient loaded with ticagrelor and will continue with dual antiplatelet therapy for at least 1 year. Plan to start on high intensity statin. We will also start a beta dougie and CHELSEA inhibitor and titrate as able. Thank you for allowing us to take care of this patient.
[2017-06-19] VITALS (12 sets, daily range): BP systolic 91–135; BP diastolic 51–84; PULSE 62–68; TEMP 36.4–37; O2SAT 95–98
[2017-06-19] MEDS: ACETAMINOPHEN 325 MG TAB PO PRN ×2 (02:35→06:50)
[2017-06-19 04:22] LABS: BASO % 0.1 %; BASO ABS # 0.01 K/uL (0-0.2); EOS % 0.4 %; EOS ABS # 0.04 K/uL (0-0.5); HEMATOCRIT 40.2 % (42-52); HEMOGLOBIN 14.5 g/dL (14.0-18.0); IG# 0.01 K/uL (0.00-0.02); MEAN CELL VOLUME 84.5 fL (80-100); MEAN CORPUSCULAR HEMOGLOBIN 30.5 pg (25-34); MEAN CORPUSCULAR HGB CONC 36.1 g/dl (32-36); MONO % 8.1 %; MONO ABS # 0.81 K/uL (0.11-0.59); NEUT % 76.3 %; NEUT ABS # 7.66 K/uL (1.4-6.5); PLATELET COUNT 165 K/uL (130-400); RED CELL DISTRIBUTION WIDTH SD 39.5 fL (36.4-46.3); WHITE BLOOD COUNT 10.03 K/uL (4.8-10.8)
[2017-06-19 06:42] LABS: CALCIUM 8.4 mg/dl (8.5-10.1); CREATININE 0.85 mg/dl (0.60-1.40); POTASSIUM 3.7 mmol/L (3.5-5.1)
[2017-06-19 07:03] LABS: PHOSPHORUS 2.7 mg/dl (2.5-4.9)
[2017-06-19] MEDS: ASPIRIN 81 MG ECTAB PO SCH (07:14)
[2017-06-19] MEDS: TICAGRELOR 90 MG TAB PO SCH ×2 (07:14→20:12)
[2017-06-19] MEDS: ATORVASTATIN 40 MG TAB PO SCH (07:15)
[2017-06-19] MEDS: METOPROLOL TARTRATE 25 MG TAB PO SCH ×2 (07:15→20:12)
--- NOTE | 2017-06-19 07:49 | DIAGNOSTIC IMAGING REPORT ---
BILATERAL CAROTID DOPPLER STUDY HISTORY: Amaurosis fugax COMPARISON: None. TECHNIQUE: Real-time, grayscale, and color Doppler sonography of the carotid arteries was performed. Imaging reviewed in the transverse and longitudinal planes. All measurements were calculated based on NASCET criteria. FINDINGS: Antegrade flow is seen in the bilateral vertebral arteries. The brachial pressures were not obtained. The peak systolic velocity within the right ICA is 76 cm/s. The right systolic ratio is 0.8. The peak systolic velocity within the left ICA is 76 cm/s. The left systolic ratio is 0.9. IMPRESSION: No hemodynamically significant stenosis seen within the carotid arteries. Electronically signed by: Julian Chahal M.D. 06/19/2017 7:48 AM Dictated Date/Time: 06/19/2017 7:47 AM
--- NOTE | 2017-06-19 08:16 | Hospitalist Progress Note ---
Hospitalist Progress Note Date of Service June 19, 2017. (Bessie Harrison PA-C) Subjective Pt evaluation today including: conversation w/ patient, physical exam, chart review, lab review, review of studies Pain: None PO Intake: Good Voiding: no voiding problems The patient was seen and examined this morning. Pt reports doing very well other than feeling fatigued today. He denies any chest pain, chest tightness, but does admit to a slight discomfort over the r chest which he describes as a muscle soreness, this has been there since after the cath but states is improving overall. Denies any sob. Pt has been ambulating without difficulty. Awaiting ECHO results today. Additional Comments: Constitutional: No fever, No chills, No sweats Eyes: No redness, No diplopia ENT: No sore throat, No trouble swallowing Respiratory: No cough, No shortness of breath Cardiovascular: No chest pain, No edema, No palpitations Abdomen: No pain, No nausea, No vomiting, No diarrhea, No constipation Musculoskeletal: No joint pain, No swelling, No calf pain Neurologic: No weakness, No numbness/tingling (Bessie Harrison PA-C) Objective Vital Signs Date Time Temp Pulse Resp B/P (MAP) Pulse Ox O2 Delivery O2 Flow Rate FiO2 06/19/17 08:00 36.7 64 20 120/80 (93) 97 Room Air 06/19/17 06:00 62 22 118/78 (91) 97 Room Air 06/19/17 04:00 36.7 68 21 116/71 (86) 97 Room Air 06/19/17 04:00 Room Air 06/19/17 02:00 68 16 120/77 (91) 95 Room Air 06/19/17 00:01 36.8 63 21 96 Room Air 06/18/17 23:59 Room Air 06/18/17 22:00 67 19 116/66 (83) 94 Room Air 06/18/17 20:00 36.7 66 28 141/85 (103) 96 Room Air 06/18/17 20:00 Room Air 06/18/17 18:58 64 20 99 BiPAP 06/18/17 18:00 65 24 118/72 (87) 97 Room Air 06/18/17 17:00 58 22 135/80 (98) 98 Room Air 06/18/17 16:00 36.6 62 22 129/87 (101) 98 Room Air 06/18/17 16:00 Room Air 06/18/17 15:00 60 22 121/81 (94) 98 Room Air 06/18/17 14:30 66 22 123/72 (89) 98 Room Air 06/18/17 14:15 62 22 123/75 (91) 98 Room Air 06/18/17 14:00 58 22 114/75 (88) 98 Room Air 06/18/17 13:45 55 22 117/73 (88) 98 Room Air 06/18/17 13:30 56 22 105/76 (86) 98 Room Air 06/18/17 13:15 36.6 55 24 105/76 98 Room Air 06/18/17 13:15 36.6 55 24 105/76 (86) 98 Room Air 06/18/17 12:08 55 18 129/89 06/18/17 12:05 57 06/18/17 11:58 58 18 135/78 100 Room Air 2.0 Nasal Cannula 06/18/17 11:57 100 Nasal Cannula 06/18/17 11:49 98 Nasal Cannula 2.0 06/18/17 11:47 59 18 143/90 95 Nasal Cannula 06/18/17 11:30 61 22 157/88 99 Room Air 06/18/17 11:30 98 Room Air (Bessie Harrison PA-C) Physical Exam Notes: General Appearance: WD/WN, no apparent distress Head: normocephalic, atraumatic Eyes: PERRL, EOMI ENT: hearing grossly normal, pharynx normal Neck: supple, no JVD, no carotid bruits Respiratory/Chest: lungs clear, normal breath sounds, no respiratory distress, no accessory muscle use, + pertinent finding (on RA) Cardiovascular: regular rate, rhythm, no edema, no murmur, normal peripheral pulses Abdomen/GI: normal bowel sounds, non tender, soft Back: normal inspection Extremities/Musculoskeletal: no calf tenderness, normal capillary refill, no pedal edema, + pertinent finding (TR band off, dressing over R artery c/d/i, no surrounding ecchymosis) Neurologic/Psych: alert, normal mood/affect, oriented x 3 Skin: normal color (Bessie Harrison PA-C) Laboratory Results Last 24 Hours Test 06/18/17 11:36 06/18/17 11:44 06/18/17 11:45 06/18/17 12:33 White Blood Count 10.10 K/uL Red Blood Count 5.06 M/uL Hemoglobin 15.6 g/dL Hematocrit 42.9 % Mean Corpuscular Volume 84.8 fL Mean Corpuscular Hemoglobin 30.8 pg Mean Corpuscular Hemoglobin Concent 36.4 g/dl Platelet Count 185 K/uL Mean Platelet Volume 9.0 fL Neutrophils (%) (Auto) 44.1 % Lymphocytes (%) (Auto) 45.6 % Monocytes (%) (Auto) 8.7 % Eosinophils (%) (Auto) 1.2 % Basophils (%) (Auto) 0.2 % Neutrophils # (Auto) 4.45 K/uL Lymphocytes # (Auto) 4.61 K/uL Monocytes # (Auto) 0.88 K/uL Eosinophils # (Auto) 0.12 K/uL Basophils # (Auto) 0.02 K/uL RDW Standard Deviation 39.8 fL RDW Coefficient of Variation 13.2 % Immature Granulocyte % (Auto) 0.2 % Immature Granulocyte # (Auto) 0.02 K/uL Prothrombin Time 10.6 SECONDS Prothromb Time International Ratio 1.0 Activated Partial Thromboplast Time 25.2 SECONDS Partial Thromboplastin Ratio 1.0 Sodium Level 142 mmol/L Potassium Level 3.6 mmol/L Chloride Level 110 mmol/L Carbon Dioxide Level 26 mmol/L Anion Gap 6.0 mmol/L 18.0 mmol/L Blood Urea Nitrogen 17 mg/dl Creatinine 1.05 mg/dl Est Creatinine Clear Calc Drug Dose 78.2 ml/min Estimated GFR () 89.6 Estimated GFR (Non- 77.3 BUN/Creatinine Ratio 16.2 Random Glucose 104 mg/dl Calcium Level 8.7 mg/dl Total Bilirubin 0.9 mg/dl Direct Bilirubin 0.1 mg/dl Aspartate Amino Transf (AST/SGOT) 13 U/L Alanine Aminotransferase (ALT/SGPT) 25 U/L Alkaline Phosphatase 103 U/L Total Creatine Kinase 73 U/L Creatine Kinase MB 1.4 ng/ml Creatine Kinase MB Ratio 1.9 Troponin I < 0.015 ng/ml Total Protein 8.0 gm/dl Albumin 4.0 gm/dl Lipase 106 U/L Bedside Troponin I < 0.030 ng/ml Bedside Hemoglobin 14.6 g/dl Bedside Hematocrit 43 % Bedside Sodium 143 mEq/L Bedside Potassium 3.6 mEq/L Bedside Chloride 105 mEq/L Bedside Total CO2 25 mEq/l Bedside Blood Urea Nitrogen 18 mg/dl Bedside Creatinine 1.0 mg/dl Bedside Glucose (other) 110 mg/dl Bedside Ionized Calcium (Ishmael) 1.24 mmol/l Kaolin Activated Coagulation Time 257 SECONDS Test 06/18/17 13:59 06/18/17 15:55 06/18/17 21:51 06/19/17 00:57 Troponin I 146.000 ng/ml 141.000 ng/ml Urine Color YELLOW Urine Appearance CLEAR Urine pH 5.5 Urine Specific [place] > 1.045 Urine Protein NEG Urine Glucose (UA) NEG Urine Ketones NEG Urine Occult Blood 1+ Urine Nitrite NEG Urine Bilirubin NEG Urine Urobilinogen NEG Urine Leukocyte Esterase NEG Urine WBC (Auto) 1-5 /hpf Urine RBC (Auto) 0-4 /hpf Urine Hyaline Casts (Auto) 1-5 /lpf Urine Epithelial Cells (Auto) 10-20 /lpf Urine Bacteria (Auto) NEG Bedside Glucose 102 mg/dl Test 06/19/17 04:05 06/19/17 06:04 06/19/17 06:18 White Blood Count 10.03 K/uL Red Blood Count 4.76 M/uL Hemoglobin 14.5 g/dL Hematocrit 40.2 % Mean Corpuscular Volume 84.5 fL Mean Corpuscular Hemoglobin 30.5 pg Mean Corpuscular Hemoglobin Concent 36.1 g/dl Platelet Count 165 K/uL Mean Platelet Volume 9.0 fL Neutrophils (%) (Auto) 76.3 % Lymphocytes (%) (Auto) 15.0 % Monocytes (%) (Auto) 8.1 % Eosinophils (%) (Auto) 0.4 % Basophils (%) (Auto) 0.1 % Neutrophils # (Auto) 7.66 K/uL Lymphocytes # (Auto) 1.50 K/uL Monocytes # (Auto) 0.81 K/uL Eosinophils # (Auto) 0.04 K/uL Basophils # (Auto) 0.01 K/uL RDW Standard Deviation 39.5 fL RDW Coefficient of Variation 13.0 % Immature Granulocyte % (Auto) 0.1 % Immature Granulocyte # (Auto) 0.01 K/uL Sodium Level 138 mmol/L Potassium Level 3.7 mmol/L Chloride Level 107 mmol/L Carbon Dioxide Level 23 mmol/L Anion Gap 8.0 mmol/L Blood Urea Nitrogen 11 mg/dl Creatinine 0.85 mg/dl Est Creatinine Clear Calc Drug Dose 93.6 ml/min Estimated GFR () 110.5 Estimated GFR (Non- 95.4 BUN/Creatinine Ratio 13.0 Random Glucose 107 mg/dl Calcium Level 8.4 mg/dl Phosphorus Level 2.7 mg/dl Magnesium Level 1.9 mg/dl Troponin I 78.200 ng/ml Triglycerides Level 96 mg/dl Cholesterol Level 185 mg/dl HDL Cholesterol 40 mg/dl LDL Cholesterol, Calculated 126 mg/dl VLDL Cholesterol, Calculated 19 mg/dl Cholesterol/HDL Ratio 4.6 Bedside Glucose 109 mg/dl (Bsesie Harrison, [place]) Assessment and Plan This is a 57 yo M with limited PMHx including chewing tobacco 1/2 can daily since age 12, who presented for acute onset of chest pain, diagnosed with STEMI and taken to the [facility] by Dr. Muñoz on 06/18/17, where 1 INGRID was placed in the mid LAD. STEMI - Admit to ICU - S/p 1 INGRID to the LAD by Dr. Muñoz on 06/18/17 - Loaded with plavix and started on Brilinta 90 mg BID, atorvastatin 80 mg daily , asa 81 mg daily, metoprolol 12.5 mg PO BID (may titrate this up tomorrow per Cards), lisinopril 5 mg daily - seems to be tolerating well - Trend troponins- peaked at 146 and has trended down to 78 - ECHO ordered today - Carotid dopplers reviewed and are negative for stenosis. - Pt will need medication compliance encouragement throughout hospital stay and close follow up. - Cardiac rehab consult per Cardiology - Follows with Dr. Johan Grant as outpatient - A1C ( in process) and Lipid panel wnl - Stable cbc and prp - VSS Chronic Tobacco Use - Risk factors include chewing tobacco 1/2 can per day - cessation encouraged, currently pt denies need for nicotine replacement DVT ppx: plavix/brilinta, teds, scds CODE: FULL Disposition: From home, likely dc within 1day pending echo results (Bessie Harrison PA-C) Attending Attestation - Pt seen/examined, chart reviewed, care plan d/w ERIKA Harrison. I agree w/ the cruz components of her documentation. Pt with minimal lower chest wall discomfort and left upper arm discomfort - markedly improved from admission. No dyspnea. No nausea. Tele normal. VSS afebrile gen - nad neck - no jvd heart - rrr, s1, s2, no murmur lungs - CTA b/l abd - soft, NT ext - no edema vascular - right radial artery w/o hematoma BMP, CBC wnl lipids - LDL 120s, HDL 40 last troponin was 70 A/P: STEMI 2nd to 100% occluded LAD s/p INGRID by Dr. Muñoz hyperlipidemia tobacco usage cont BB, brilinta, asa, statin, [place] await echo ambulate today, home tomorrow counseled today to quit tobacco use Andrey BUSTAMANTE MD (Niranjan Bustamante MD)
[2017-06-19] MEDS ORDERED: LISINOPRIL 5 MG TAB PO SCH (09:00)
--- NOTE | 2017-06-19 10:50 | Cardiology Follow-Up ---
Subjective Date of Service: June 19, 2017. Pt evaluation today including: conversation w/ patient, physical exam, chart review, lab review, review of studies, review of inpatient medication list History of Present Illness The patient is a 57-year-old gentleman who suffered an acute anterior myocardial infarction yesterday. The patient does report some symptoms of chest discomfort, however these appear to be more musculoskeletal. There is somewhat reproducible with certain motions and not entirely similar to his presenting symptom. They are fairly mild in severity overall. He denies any breathing difficulty. He denies any dizziness or lightheadedness. He has been up to the chair without difficulty. Overall he claims to be feeling quite well. Social History Smoking Status: Never Smoker History of Alcohol Use: Yes (occ. beer) Review of Systems Tolerated breakfast. No sense of palpitation. Minimal discomfort at the access site of the right wrist Objective Vital Signs Past 12 Hours Date Time Temp Pulse Resp B/P (MAP) Pulse Ox O2 Delivery O2 Flow Rate FiO2 06/19/17 10:00 63 22 135/84 (101) 96 Room Air 06/19/17 08:00 36.7 64 20 120/80 (93) 97 Room Air 06/19/17 08:00 Room Air 97 06/19/17 06:00 62 22 118/78 (91) 97 Room Air 06/19/17 04:00 36.7 68 21 116/71 (86) 97 Room Air 06/19/17 04:00 Room Air 06/19/17 02:00 68 16 120/77 (91) 95 Room Air 06/19/17 00:01 36.8 63 21 96 Room Air 06/18/17 23:59 Room Air Last Recorded Weight-Kilograms: 76.300 Physical Exam The patient is alert and oriented. Mood and affect appeared normal. He answered all questions appropriately. HEENT: Pupils are equal and reactive to light and accommodation. Extraocular movements are intact. The sclerae are anicteric. Neuro: Cranial nerves intact Neck: Patient's neck is supple. He has palpable carotid pulses bilaterally without bruits on auscultation. There is no evidence of jugular venous distention. The thyroid is not enlarged. Lungs: Clear to auscultation bilaterally. He has good air movement without use of accessory muscles. No rales wheezes or rhonchi. Cardiac: Heart demonstrates a regular rate and rhythm. Normal S1 and S2. No murmurs on examination. Pulses: The patient has palpable radial pulses bilaterally that are equal in intensity Extremities: There was no evidence of hypoperfusion. There is no cyanosis or clubbing. There is no edema. Only mild ecchymosis at the right radial wrist access site. He has a palpable radial pulse distal to the access site. He appears to have good perfusion overall. Skin: I did not appreciate any rashes on examination today. Data Laboratory Results: Last 24 Hours Test 06/18/17 11:36 06/18/17 11:44 06/18/17 11:45 06/18/17 12:33 White Blood Count 10.10 K/uL Red Blood Count 5.06 M/uL Hemoglobin 15.6 g/dL Hematocrit 42.9 % Mean Corpuscular Volume 84.8 fL Mean Corpuscular Hemoglobin 30.8 pg Mean Corpuscular Hemoglobin Concent 36.4 g/dl Platelet Count 185 K/uL Mean Platelet Volume 9.0 fL Neutrophils (%) (Auto) 44.1 % Lymphocytes (%) (Auto) 45.6 % Monocytes (%) (Auto) 8.7 % Eosinophils (%) (Auto) 1.2 % Basophils (%) (Auto) 0.2 % Neutrophils # (Auto) 4.45 K/uL Lymphocytes # (Auto) 4.61 K/uL Monocytes # (Auto) 0.88 K/uL Eosinophils # (Auto) 0.12 K/uL Basophils # (Auto) 0.02 K/uL RDW Standard Deviation 39.8 fL RDW Coefficient of Variation 13.2 % Immature Granulocyte % (Auto) 0.2 % Immature Granulocyte # (Auto) 0.02 K/uL Prothrombin Time 10.6 SECONDS Prothromb Time International Ratio 1.0 Activated Partial Thromboplast Time 25.2 SECONDS Partial Thromboplastin Ratio 1.0 Sodium Level 142 mmol/L Potassium Level 3.6 mmol/L Chloride Level 110 mmol/L Carbon Dioxide Level 26 mmol/L Anion Gap 6.0 mmol/L 18.0 mmol/L Blood Urea Nitrogen 17 mg/dl Creatinine 1.05 mg/dl Est Creatinine Clear Calc Drug Dose 78.2 ml/min Estimated GFR () 89.6 Estimated GFR (Non- 77.3 BUN/Creatinine Ratio 16.2 Random Glucose 104 mg/dl Calcium Level 8.7 mg/dl Total Bilirubin 0.9 mg/dl Direct Bilirubin 0.1 mg/dl Aspartate Amino Transf (AST/SGOT) 13 U/L Alanine Aminotransferase (ALT/SGPT) 25 U/L Alkaline Phosphatase 103 U/L Total Creatine Kinase 73 U/L Creatine Kinase MB 1.4 ng/ml Creatine Kinase MB Ratio 1.9 Troponin I < 0.015 ng/ml Total Protein 8.0 gm/dl Albumin 4.0 gm/dl Lipase 106 U/L Bedside Troponin I < 0.030 ng/ml Bedside Hemoglobin 14.6 g/dl Bedside Hematocrit 43 % Bedside Sodium 143 mEq/L Bedside Potassium 3.6 mEq/L Bedside Chloride 105 mEq/L Bedside Total CO2 25 mEq/l Bedside Blood Urea Nitrogen 18 mg/dl Bedside Creatinine 1.0 mg/dl Bedside Glucose (other) 110 mg/dl Bedside Ionized Calcium (Ishmael) 1.24 mmol/l Kaolin Activated Coagulation Time 257 SECONDS Test 06/18/17 13:59 06/18/17 15:55 06/18/17 21:51 06/19/17 00:57 Troponin I 146.000 ng/ml 141.000 ng/ml Urine Color YELLOW Urine Appearance CLEAR Urine pH 5.5 Urine Specific [place] > 1.045 Urine Protein NEG Urine Glucose (UA) NEG Urine Ketones NEG Urine Occult Blood 1+ Urine Nitrite NEG Urine Bilirubin NEG Urine Urobilinogen NEG Urine Leukocyte Esterase NEG Urine WBC (Auto) 1-5 /hpf Urine RBC (Auto) 0-4 /hpf Urine Hyaline Casts (Auto) 1-5 /lpf Urine Epithelial Cells (Auto) 10-20 /lpf Urine Bacteria (Auto) NEG Bedside Glucose 102 mg/dl Test 06/19/17 04:05 06/19/17 06:04 06/19/17 06:18 White Blood Count 10.03 K/uL Red Blood Count 4.76 M/uL Hemoglobin 14.5 g/dL Hematocrit 40.2 % Mean Corpuscular Volume 84.5 fL Mean Corpuscular Hemoglobin 30.5 pg Mean Corpuscular Hemoglobin Concent 36.1 g/dl Platelet Count 165 K/uL Mean Platelet Volume 9.0 fL Neutrophils (%) (Auto) 76.3 % Lymphocytes (%) (Auto) 15.0 % Monocytes (%) (Auto) 8.1 % Eosinophils (%) (Auto) 0.4 % Basophils (%) (Auto) 0.1 % Neutrophils # (Auto) 7.66 K/uL Lymphocytes # (Auto) 1.50 K/uL Monocytes # (Auto) 0.81 K/uL Eosinophils # (Auto) 0.04 K/uL Basophils # (Auto) 0.01 K/uL RDW Standard Deviation 39.5 fL RDW Coefficient of Variation 13.0 % Immature Granulocyte % (Auto) 0.1 % Immature Granulocyte # (Auto) 0.01 K/uL Sodium Level 138 mmol/L Potassium Level 3.7 mmol/L Chloride Level 107 mmol/L Carbon Dioxide Level 23 mmol/L Anion Gap 8.0 mmol/L Blood Urea Nitrogen 11 mg/dl Creatinine 0.85 mg/dl Est Creatinine Clear Calc Drug Dose 93.6 ml/min Estimated GFR () 110.5 Estimated GFR (Non- 95.4 BUN/Creatinine Ratio 13.0 Random Glucose 107 mg/dl Calcium Level 8.4 mg/dl Phosphorus Level 2.7 mg/dl Magnesium Level 1.9 mg/dl Troponin I 78.200 ng/ml Triglycerides Level 96 mg/dl Cholesterol Level 185 mg/dl HDL Cholesterol 40 mg/dl LDL Cholesterol, Calculated 126 mg/dl VLDL Cholesterol, Calculated 19 mg/dl Cholesterol/HDL Ratio 4.6 Bedside Glucose 109 mg/dl EKG: Pending Telemetry reviewed: Sinus rhythm. No arrhythmia Assessment and Plan 1. Acute anterior myocardial infarction: Patient appears to be doing quite well. He has had no recurrence of his index symptoms. No evidence of heart failure. No electrical instability. Hemodynamically stable and tolerating his medications. Will continue on his current dose of beta-dougie given his relative bradycardia and the fact that he has only received 2 doses. Perhaps we could titrate this upwards tomorrow morning. He appears to be tolerating lisinopril well. Continue dual anti-platelet therapy. No evidence of renal dysfunction. Electrolytes normal. Echocardiogram pending for today. 2. Coronary artery disease: He has some residual disease in the proximal LAD. Will be treated with aggressive secondary prevention. 3. Hyperlipidemia: On high-dose atorvastatin. He had some concerns regarding this medication in his 's intolerance to statin drugs.
--- NOTE | 2017-06-19 11:41 | Critical Care Progress Note ---
Critical Care Progress Note Date of Service June 19, 2017. Attending Dr. Emanuel Subjective Patient is doing well this am. He has been out bed into the chair and is tolerating a full diet. He does report some substernal chest discomfort this am. He denies reoccurrence of visual disturbances today. In addition, he denies SOB, LE swelling. Objective General Appearance: well-appearing, WD/WN Neck: normal range of motion, no tenderness, trachea midline, no stridor, supple, no lymphadenopathy Cardiovasular: regular rate/rhythm, normal S1S2, no M/G/R Abdomen: non tender, normal bowel sounds, no rebound, no masses, no guarding, no organomegaly Lower Extremities: no edema Assessment & Plan 57 yo male presents to the ICU for monitoring s/p CABG, PCI and stent placement Assessment; Patient is s/p cardiac catheterization, day 1. He did well overnight --remained hemodynamically stable and without electrical event. No reoccurrence of visual symptoms. Plan; Carotid Doppler, ECHO, transfer to telemetry, followed by cardiology. NEURO -Patient is alert and oriented, answering questions appropriately -He does c/o left eye, superolateral visual field changes described as wavy lines--symptoms appear to chronic -Visual acuity testing, ophthalmology consult placed---can be followed up in the outpatient CARDIAC -STEMI-- mid LAD-- PCI with single drug-eluting stent -Hemodynamically stable, HR 60-65, SBP 115-130 DBP 75-80 -Post STEMI regimen--Dual anticoagulant tx--Brilinta/ASA, Lipitor, Lopressor, Zestril, Nitro for PRN chest pain -Carotid dopplers ordered--no hemodynamically significant stenosis seen within the carotid arteries. -Lipids--high intensity statin therapy indicated -ECHO today PULM -CXR-no acute process, 98% on RA GI -No ulcer ppx indicated Renal/lytes -No electrolyte derangements -Follow and replete -UA negative for infection Endo -No h/o of DM -A1C pending Heme -14.5Hgb, 40.2 HCT ID -No signs or sx of infection; unremarkable UA an CXR -WBC 10.10, afebrile Line/DVTppx -PIV Resuscitation -Full code Dr. Montgomery was resident physician during care of patient. I separately evaluated patient and did history and exam. I discussed the case with the resident and generally agree with the findings and plan. Patient asymptomatic for visual changes, stable for downgrade to telemetry status today Data Medications: Current Inpatient Medications Medications (Trade) Dose Ordered Sig/Libby Route Start Time Stop Time Status Last Admin Dose Admin Nitroglycerin (Nitrostat Tab) 0.4 mg UD PRN SL 06/18/17 13:15 07/18/17 13:14 Ondansetron HCl (Zofran Inj) 4 mg Q6H PRN IV 06/18/17 13:15 07/18/17 13:14 Aspirin (Ecotrin Tab) 81 mg QAM PO 06/19/17 09:00 07/19/17 08:59 06/19/17 07:14 81 MG Atorvastatin Calcium (Lipitor Tab) 80 mg QAM PO 06/19/17 09:00 07/19/17 08:59 06/19/17 07:15 80 MG Metoprolol Tartrate (Lopressor Tab) 12.5 mg Q12 PO 06/18/17 21:00 07/18/17 20:59 06/19/17 07:15 12.5 MG Lisinopril (Zestril Tab) 5 mg QAM PO 06/19/17 09:00 07/19/17 08:59 06/19/17 07:15 5 MG Ticagrelor (Brilinta Tab) 90 mg BID PO 06/18/17 21:00 07/18/17 20:59 06/19/17 07:14 90 MG Acetaminophen (Tylenol Tab) 650 mg Q4H PRN PO 06/18/17 20:15 07/18/17 20:14 06/19/17 06:50 650 MG Morphine Sulfate (MoRPHine SULFATE INJ) 2 mg Q2H PRN IV 06/18/17 20:15 07/02/17 20:14 Vital Signs: Date Time Temp Pulse Resp B/P (MAP) Pulse Ox O2 Delivery O2 Flow Rate FiO2 06/19/17 10:00 63 22 135/84 (101) 96 Room Air 06/19/17 08:00 36.7 64 20 120/80 (93) 97 Room Air 06/19/17 08:00 Room Air 97 06/19/17 06:00 62 22 118/78 (91) 97 Room Air 06/19/17 04:00 36.7 68 21 116/71 (86) 97 Room Air 06/19/17 04:00 Room Air 06/19/17 02:00 68 16 120/77 (91) 95 Room Air 06/19/17 00:01 36.8 63 21 96 Room Air 06/18/17 23:59 Room Air 06/18/17 22:00 67 19 116/66 (83) 94 Room Air 06/18/17 20:00 36.7 66 28 141/85 (103) 96 Room Air 06/18/17 20:00 Room Air 06/18/17 18:58 64 20 99 BiPAP 06/18/17 18:00 65 24 118/72 (87) 97 Room Air 06/18/17 17:00 58 22 135/80 (98) 98 Room Air 06/18/17 16:00 36.6 62 22 129/87 (101) 98 Room Air 06/18/17 16:00 Room Air 06/18/17 15:00 60 22 121/81 (94) 98 Room Air 06/18/17 14:30 66 22 123/72 (89) 98 Room Air 06/18/17 14:15 62 22 123/75 (91) 98 Room Air 06/18/17 14:00 58 22 114/75 (88) 98 Room Air 06/18/17 13:45 55 22 117/73 (88) 98 Room Air 06/18/17 13:30 56 22 105/76 (86) 98 Room Air 06/18/17 13:15 36.6 55 24 105/76 98 Room Air 06/18/17 13:15 36.6 55 24 105/76 (86) 98 Room Air 06/18/17 12:08 55 18 129/89 06/18/17 12:05 57 06/18/17 11:58 58 18 135/78 100 Room Air 2.0 Nasal Cannula 06/18/17 11:57 100 Nasal Cannula 06/18/17 11:49 98 Nasal Cannula 2.0 06/18/17 11:47 59 18 143/90 95 Nasal Cannula Laboratory Results: Last 24 Hours Test 06/18/17 11:44 06/18/17 11:45 06/18/17 12:33 06/18/17 13:59 Bedside Troponin I < 0.030 ng/ml Bedside Hemoglobin 14.6 g/dl Bedside Hematocrit 43 % Bedside Sodium 143 mEq/L Bedside Potassium 3.6 mEq/L Bedside Chloride 105 mEq/L Bedside Total CO2 25 mEq/l Anion Gap 18.0 mmol/L Bedside Blood Urea Nitrogen 18 mg/dl Bedside Creatinine 1.0 mg/dl Bedside Glucose (other) 110 mg/dl Bedside Ionized Calcium (Ishmael) 1.24 mmol/l Kaolin Activated Coagulation Time 257 SECONDS Troponin I 146.000 ng/ml Test 06/18/17 15:55 06/18/17 21:51 06/19/17 00:57 06/19/17 04:05 Urine Color YELLOW Urine Appearance CLEAR Urine pH 5.5 Urine Specific [place] > 1.045 Urine Protein NEG Urine Glucose (UA) NEG Urine Ketones NEG Urine Occult Blood 1+ Urine Nitrite NEG Urine Bilirubin NEG Urine Urobilinogen NEG Urine Leukocyte Esterase NEG Urine WBC (Auto) 1-5 /hpf Urine RBC (Auto) 0-4 /hpf Urine Hyaline Casts (Auto) 1-5 /lpf Urine Epithelial Cells (Auto) 10-20 /lpf Urine Bacteria (Auto) NEG Troponin I 141.000 ng/ml Bedside Glucose 102 mg/dl White Blood Count 10.03 K/uL Red Blood Count 4.76 M/uL Hemoglobin 14.5 g/dL Hematocrit 40.2 % Mean Corpuscular Volume 84.5 fL Mean Corpuscular Hemoglobin 30.5 pg Mean Corpuscular Hemoglobin Concent 36.1 g/dl Platelet Count 165 K/uL Mean Platelet Volume 9.0 fL Neutrophils (%) (Auto) 76.3 % Lymphocytes (%) (Auto) 15.0 % Monocytes (%) (Auto) 8.1 % Eosinophils (%) (Auto) 0.4 % Basophils (%) (Auto) 0.1 % Neutrophils # (Auto) 7.66 K/uL Lymphocytes # (Auto) 1.50 K/uL Monocytes # (Auto) 0.81 K/uL Eosinophils # (Auto) 0.04 K/uL Basophils # (Auto) 0.01 K/uL RDW Standard Deviation 39.5 fL RDW Coefficient of Variation 13.0 % Immature Granulocyte % (Auto) 0.1 % Immature Granulocyte # (Auto) 0.01 K/uL Test 06/19/17 06:04 06/19/17 06:18 Sodium Level 138 mmol/L Potassium Level 3.7 mmol/L Chloride Level 107 mmol/L Carbon Dioxide Level 23 mmol/L Anion Gap 8.0 mmol/L Blood Urea Nitrogen 11 mg/dl Creatinine 0.85 mg/dl Est Creatinine Clear Calc Drug Dose 93.6 ml/min Estimated GFR () 110.5 Estimated GFR (Non- 95.4 BUN/Creatinine Ratio 13.0 Random Glucose 107 mg/dl Calcium Level 8.4 mg/dl Phosphorus Level 2.7 mg/dl Magnesium Level 1.9 mg/dl Troponin I 78.200 ng/ml Triglycerides Level 96 mg/dl Cholesterol Level 185 mg/dl HDL Cholesterol 40 mg/dl LDL Cholesterol, Calculated 126 mg/dl VLDL Cholesterol, Calculated 19 mg/dl Cholesterol/HDL Ratio 4.6 Bedside Glucose 109 mg/dl
--- NOTE | 2017-06-19 17:20 | ECHOCARDIOGRAM REPORT ---
*NOTICE TO RECEIVING LIBERTARIAN AGENCY This information is strictly Confidential and protected under [place] law. [place] law prohibits you from making any further disclosure of this information unless further disclosure is expressly permitted by the written consent of the person to whom it pertains or is authorized by law. A general authorization for the release of medical or other information is not sufficient for this purpose. Hospital accepts no responsibility if the information is made available to any other person, INCLUDING THE PATIENT. Interpretation Summary * Name: KRISTINA VALLE Study Date: 06/19/2017 12:48 PM BP: 135/84 mmHg * Patient Location: .[facility]\S\E104\S\1 HR: 66 * : 1960 (M/d/yyyy) Gender: Male Height: 69 in * Age: 57 yrs Ethnicity: CA Weight: 168 lb * Ordering Physician: Harjeet Cormier * Referring Physician: Self, Referred * Performed By: Harsh Sauceda RDCS * * Reason For Study: AMI * BSA: 1.9 m2 * -- Conclusions -- * Left ventricular systolic function is moderately reduced. * Spontaneous contrast is noted consistent with low flow state. * There are regional wall motion abnormalities as specified. * Right ventricular systolic pressure is normal. Procedure Details * A complete two-dimensional transthoracic echocardiogram was performed (2D, M-mode, Doppler and color flow Doppler). * The study was technically difficult, but visualization was adequate with the administration of Definity ultrasound contrast. * A contrast injection of Definity was performed to improve assessment for apical thrombus. * Contrast was injected into an intravenous site in the right arm. * One vial of Definity ultrasound contrast was diluted in normal saline to a total volume of 10 ml. A total of '6' ml of solution was administered during imaging. * Lot # [id number] of Definity utilized for procedure. * Expiration date . * The attending nurse who injected the contrast agent was Francoise Contreras RN. Left Ventricle * The left ventricle is normal in size. * Spontaneous contrast is noted consistent with low flow state. * There is normal left ventricular wall thickness. * Left ventricular systolic function is moderately reduced. * Ejection Fraction = 30-35%. * There are regional wall motion abnormalities as specified. * There is akinesis of the distal anterior wall, septum and apex. Right Ventricle * The right ventricle is normal in size and function. * The right ventricular systolic function is normal as assessed by tricuspid annular plane systolic excursion (TAPSE) (normal >1.5 cm). Atria * The left atrial size is normal. * Right atrial size is normal. Mitral Valve * The mitral valve anatomy is normal. * Significant mitral regurgitation is absent. Tricuspid Valve * The tricuspid valve is not well visualized, but is grossly normal. * There is trace tricuspid regurgitation. * Right ventricular systolic pressure is normal. Aortic Valve * The aortic valve is normal in structure and function. * The aortic valve is trileaflet. * No hemodynamically significant valvular aortic stenosis. * There is no significant aortic regurgitation. Pulmonic Valve * The pulmonic valve is not well visualized. Great Vessels * The aortic root is normal size. Pericardium/Pleural * Trace pericardial effusion Great Vessels * Normal inferior vena cava diameter and respiratory variation suggests normal central venous pressure. MMode 2D Measurements and Calculations IVSd 0.98 cm IVSs 1.3 cm LVIDd 4.4 cm LVIDs 2.8 cm LVPWd 0.85 cm LVPWs 1.3 cm IVS/LVPW 1.2 FS 35.9 % EDV(Teich) 88.8 ml ESV(Teich) 30.5 ml EF(Teich) 65.7 % EDV(cubed) 86.5 ml ESV(cubed) 22.8 ml EF(cubed) 73.7 % % IVS thick 29.4 % % LVPW thick 52.9 % LV mass(C)d 131.9 grams LV mass(C)dI 68.8 grams/m\S\2 LV mass(C)s 112.7 grams LV mass(C)sI 58.7 grams/m\S\2 SV(Teich) 58.3 ml SI(Teich) 30.4 ml/m\S\2 SV(cubed) 63.7 ml SI(cubed) 33.2 ml/m\S\2 EPSS 0.97 cm Ao root diam 3.5 cm Ao root area 9.8 cm\S\2 ACS 2.1 cm LA dimension 3.5 cm asc Aorta Diam 3.0 cm LA/Ao 0.99 LVOT diam 2.1 cm LVOT area 3.3 cm\S\2 LVAd ap4 35.7 cm\S\2 LVLd ap4 8.9 cm EDV(MOD-sp4) 118.4 ml EDV(sp4-el) 122.0 ml LVAs ap4 24.5 cm\S\2 LVLs ap4 7.8 cm ESV(MOD-sp4) 60.4 ml ESV(sp4-el) 65.2 ml EF(MOD-sp4) 49.0 % EF(sp4-el) 46.6 % LVAd ap2 26.8 cm\S\2 LVLd ap2 8.6 cm EDV(MOD-sp2) 76.7 ml EDV(sp2-el) 71.1 ml LVAs ap2 19.3 cm\S\2 LVLs ap2 8.3 cm ESV(MOD-sp2) 36.8 ml ESV(sp2-el) 38.1 ml EF(MOD-sp2) 52.0 % EF(sp2-el) 46.5 % LVLd %diff -3.07 % EDV(MOD-bp) 94.0 ml LVLs %diff 4.2 % ESV(MOD-bp) 41.9 ml EF(MOD-bp) 55.5 % SV(MOD-sp4) 58.0 ml SI(MOD-sp4) 30.2 ml/m\S\2 SV(MOD-sp2) 39.9 ml SI(MOD-sp2) 20.8 ml/m\S\2 SV(MOD-bp) 52.2 ml SI(MOD-bp) 27.2 ml/m\S\2 SV(sp4-el) 56.9 ml SI(sp4-el) 29.6 ml/m\S\2 SV(sp2-el) 33.0 ml SI(sp2-el) 17.2 ml/m\S\2 Doppler Measurements and Calculations MV E max susan 65.2 cm/sec MV A max susan 51.8 cm/sec MV E/A 1.3 MV dec time 0.17 sec Ao V2 max 118.2 cm/sec Ao max PG 5.6 mmHg Ao max PG (full) 2.1 mmHg KAREEN(V,A) 2.7 cm\S\2 KAREEN(V,D) 2.7 cm\S\2 LV V1 max PG 3.5 mmHg LV V1 max 93.8 cm/sec PA V2 max 93.2 cm/sec PA max PG 3.5 mmHg PA acc slope 543.5 cm/sec\S\2 PA acc time 0.14 sec TR max susan 244.4 cm/sec PA pr(Accel) 16.5 mmHg
[2017-06-19] MEDS ORDERED: ENOXAPARIN 1 MG/KG SQ SCH (17:30)
[2017-06-19] MEDS ORDERED: ENOXAPARIN 80 MG/0.8 ML SYR SQ ONE (17:45)
[2017-06-20] VITALS (8 sets, daily range): BP systolic 101–125; BP diastolic 57–80; PULSE 64–72; TEMP 36.4–37; O2SAT 96–98
[2017-06-20 05:44] LABS: BASO % 0.1 %; BASO ABS # 0.01 K/uL (0-0.2); EOS % 0.7 %; EOS ABS # 0.05 K/uL (0-0.5); HEMATOCRIT 39.9 % (42-52); HEMOGLOBIN 14.6 g/dL (14.0-18.0); IG# 0.02 K/uL (0.00-0.02); LYMPH % 24.4 %; LYMPH ABS # 1.82 K/uL (1.2-3.4); MEAN CELL VOLUME 84.5 fL (80-100); MEAN CORPUSCULAR HEMOGLOBIN 30.9 pg (25-34); MEAN CORPUSCULAR HGB CONC 36.6 g/dl (32-36); MEAN PLATELET VOLUME 8.9 fL (7.4-10.4); MONO ABS # 0.67 K/uL (0.11-0.59); NEUT % 65.5 %; NEUT ABS # 4.88 K/uL (1.4-6.5); PLATELET COUNT 156 K/uL (130-400); WHITE BLOOD COUNT 7.45 K/uL (4.8-10.8)
[2017-06-20 06:04] LABS: CALCIUM 8.8 mg/dl (8.5-10.1); CREATININE 0.97 mg/dl (0.60-1.40); POTASSIUM 3.8 mmol/L (3.5-5.1)
[2017-06-20 06:19] LABS: HEMOGLOBIN A1C 4.9 % (4.5-5.6)
[2017-06-20] MEDS: TICAGRELOR 90 MG TAB PO SCH ×2 (09:22→21:33)
[2017-06-20] MEDS: ASPIRIN 81 MG ECTAB PO SCH (09:23)
[2017-06-20] MEDS: METOPROLOL TARTRATE 25 MG TAB PO SCH ×2 (09:23→21:33)
[2017-06-20] MEDS: ATORVASTATIN 40 MG TAB PO SCH (09:23)
[2017-06-20] MEDS: LISINOPRIL 2.5 MG TAB PO SCH (09:39)
[2017-06-20] MEDS ORDERED: ENOXAPARIN 80 MG/0.8 ML SYR SQ ONE (12:30)
--- NOTE | 2017-06-20 13:42 | Cardiology Follow-Up ---
Subjective Subjective Date of Service: June 20, 2017. Pt evaluation today including: conversation w/ patient, physical exam, chart review, lab review, review of studies, review of inpatient medication list Additional Details: Reports feeling well. Mild chest discomfort -- positional, somewhat improved with sitting up. No shortness of breath. One episode of dizziness right after meds this morning. Tele reviewed -- occasional PVCs. Problem List Medical Problems: (1) Acute anterior wall AL Status: Acute Review of Systems Constitutional: No fever, No chills Respiratory: No cough, No sputum Cardiac: + chest pain Abdomen: No pain, No nausea Male : + urinary frequency, No dysuria Heme: No abnormal bleeding/bruising Skin: No rash Objective Vital Signs Last Vital Signs Documentation Date Time Temp Pulse Resp B/P (MAP) Pulse Ox O2 Delivery O2 Flow Rate FiO2 06/20/17 12:00 Room Air 06/20/17 11:51 36.6 65 18 110/72 (85) 98 06/19/17 13:50 2.0 06/19/17 12:00 96 Physical Exam: General Appearance: no apparent distress ENT: normal ENT inspection Neck: no JVD Respiratory/Chest: lungs clear, normal breath sounds, no respiratory distress Cardiovascular: regular rate, rhythm, no edema, no murmur, + pertinent finding (right radial artery -- intact distal pulse and sensation; mild resolving ecchymosis. ) Abdomen: normal bowel sounds, non tender, soft Extremities: no pedal edema, no calf tenderness, + pertinent finding (clammy skin) Neurologic/Psychiatric: no motor/sensory deficits, alert, normal mood/affect Assessment and Plan 1. Anterior STEMI -- PPCI to mid LAD with single INGRID 2. Moderate residual proximal LAD disease. 3. ICM - EF 35-40%, apical akinesis. 4. Dyslipidemia 5. Occasional PVCs 6. Trace pericardial effusion/? pericarditis No recurrent anginal symptoms. Intermittent mild positional chest pain - ? post-mi pericarditis Electrically stable. -- reviewed echo from yesterday -- LV function ~40% but apical akinesis slow flow -- agree high-risk for LV thrombus and would continue anticoagulation --> will start eliquis 5mg BID -- will continue ASA/Ticagrelor -- continue current beta-dougie, CHELSEA -- continue high-intensity statin -- discussed possible life-vest --> as LV function looks close to 40% to me and electrically stable on telemetry will hold-of on life vest -- Continue to monitor overnight on telemetry with plan for discharge tomorrow with close cardiac follow-up. Medications: Current Inpatient Medications Medications (Trade) Dose Ordered Sig/Libby Route Start Time Stop Time Status Last Admin Dose Admin Nitroglycerin (Nitrostat Tab) 0.4 mg UD PRN SL 06/18/17 13:15 07/18/17 13:14 Ondansetron HCl (Zofran Inj) 4 mg Q6H PRN IV 06/18/17 13:15 07/18/17 13:14 Aspirin (Ecotrin Tab) 81 mg QAM PO 06/19/17 09:00 07/19/17 08:59 06/20/17 09:23 81 MG Atorvastatin Calcium (Lipitor Tab) 80 mg QAM PO 06/19/17 09:00 07/19/17 08:59 06/20/17 09:23 80 MG Metoprolol Tartrate (Lopressor Tab) 12.5 mg Q12 PO 06/18/17 21:00 07/18/17 20:59 06/20/17 09:23 12.5 MG Ticagrelor (Brilinta Tab) 90 mg BID PO 06/18/17 21:00 07/18/17 20:59 06/20/17 09:22 90 MG Acetaminophen (Tylenol Tab) 650 mg Q4H PRN PO 06/18/17 20:15 07/18/17 20:14 06/19/17 06:50 650 MG Morphine Sulfate (MoRPHine SULFATE INJ) 2 mg Q2H PRN IV 06/18/17 20:15 07/02/17 20:14 Lisinopril (Zestril Tab) 2.5 mg QAM PO 06/20/17 09:00 07/19/17 08:59 06/20/17 09:39 2.5 MG Enoxaparin Sodium (Lovenox Inj) 80 mg Q12H SQ 06/21/17 00:00 07/21/17 00:00 Lab Results: 06/20/17 05:24 Red Blood Count 4.72, Mean Corpuscular Volume 84.5, Mean Corpuscular Hemoglobin 30.9, Mean Corpuscular Hemoglobin Concent 36.6, Mean Platelet Volume 8.9, Neutrophils (%) (Auto) 65.5, Lymphocytes (%) (Auto) 24.4, Monocytes (%) (Auto) 9.0, Eosinophils (%) (Auto) 0.7, Basophils (%) (Auto) 0.1, Neutrophils # (Auto) 4.88, Lymphocytes # (Auto) 1.82, Monocytes # (Auto) 0.67, Eosinophils # (Auto) 0.05, Basophils # (Auto) 0.01 06/20/17 05:24 Test 06/20/17 05:24 White Blood Count 7.45 K/uL (4.8-10.8) Red Blood Count 4.72 M/uL (4.7-6.1) Hemoglobin 14.6 g/dL (14.0-18.0) Hematocrit 39.9 % (42-52) Mean Corpuscular Volume 84.5 fL (80-100) Mean Corpuscular Hemoglobin 30.9 pg (25-34) Mean Corpuscular Hemoglobin Concent 36.6 g/dl (32-36) Platelet Count 156 K/uL (130-400) Mean Platelet Volume 8.9 fL (7.4-10.4) Neutrophils (%) (Auto) 65.5 % Lymphocytes (%) (Auto) 24.4 % Monocytes (%) (Auto) 9.0 % Eosinophils (%) (Auto) 0.7 % Basophils (%) (Auto) 0.1 % Neutrophils # (Auto) 4.88 K/uL (1.4-6.5) Lymphocytes # (Auto) 1.82 K/uL (1.2-3.4) Monocytes # (Auto) 0.67 K/uL (0.11-0.59) Eosinophils # (Auto) 0.05 K/uL (0-0.5) Basophils # (Auto) 0.01 K/uL (0-0.2) RDW Standard Deviation 40.0 fL (36.4-46.3) RDW Coefficient of Variation 13.0 % (11.5-14.5) Immature Granulocyte % (Auto) 0.3 % Immature Granulocyte # (Auto) 0.02 K/uL (0.00-0.02) Anion Gap 7.0 mmol/L (3-11) Est Creatinine Clear Calc Drug Dose 82.0 ml/min Estimated GFR () 98.6 Estimated GFR (Non- 85.1 BUN/Creatinine Ratio 14.9 (10-20) Calcium Level 8.8 mg/dl (8.5-10.1)
--- NOTE | 2017-06-20 14:15 | Hospitalist Progress Note ---
Hospitalist Progress Note Date of Service June 20, 2017. (Lissa Riley ., ERIKA-C) Subjective Pt evaluation today including: conversation w/ patient, physical exam, chart review, lab review, conversation w/ service consultant (spoke with Dr. Muñoz), review of inpatient medication list Pain: 2/10 "pulling" sensation in his chest w/movement PO Intake: Tolerating PO diet Voiding: no voiding problems Patient reports feeling well. He does complain of a mild 2/10 "pulling" sensation in his left chest with certain movements but denies any pain when he is staying still. He denies any shortness of breath. He does report some mild nausea this morning after taking all of his pills. The patient denies fevers, chills, sweats, palpitations, claudication, cough, wheezing, shortness of breath , vomiting, abdominal pain, dysuria, hematuria, urinary retention, paralysis, weakness, numbness and tingling. Additional Comments: See HPI for pertinent positives and negatives. All other systems reviewed and negative. (Lissa Riley ., ERIKA-C) Objective Vital Signs Date Time Temp Pulse Resp B/P (MAP) Pulse Ox O2 Delivery O2 Flow Rate FiO2 06/20/17 12:00 Room Air 06/20/17 11:51 36.6 65 18 110/72 (85) 98 Room Air 06/20/17 09:34 36.7 70 18 114/77 (89) 96 Room Air 06/20/17 08:00 Room Air 06/20/17 07:00 36.4 66 18 101/57 (72) 96 Room Air 06/20/17 04:00 37.0 72 16 104/62 (76) 96 Room Air 06/20/17 04:00 Room Air 06/20/17 00:21 104/65 (78) 06/20/17 00:00 Room Air 06/19/17 23:33 37.0 66 20 91/51 (64) 98 Room Air 06/19/17 20:00 Room Air 06/19/17 19:43 36.6 68 18 102/61 (75) 97 Room Air 06/19/17 16:00 96 Room Air 06/19/17 14:22 97 Room Air 06/19/17 14:22 36.4 66 18 104/66 (79) 97 Room Air (Lissa Riley PA-C) Physical Exam Notes: General appearance: Well-developed, well-nourished, no apparent distress Head: Normocephalic, atraumatic Eyes: Normal inspection, PERRL, EOMI ENT: Normal ENT inspection, hearing grossly normal, pharynx normal Neck: Supple, no JVD, trachea midline Respiratory/Chest: Lungs clear to auscultation, normal breath sounds, no respiratory distress Cardiovascular: Regular rate & rhythm, no gallop, no murmur Abdomen/GI: Normal bowel sounds, non-tender, soft Extremities/Musculoskeletal: +Right wrist cath insertion site with ecchymosis. No calf tenderness, no pedal edema Neurological/Psych: Alert, normal mood/affect, oriented x 3 Skin: Normal color, warm/dry, no rash (Lissa Riley PA-C) Laboratory Results Last 24 Hours Test 06/20/17 05:24 White Blood Count 7.45 K/uL Red Blood Count 4.72 M/uL Hemoglobin 14.6 g/dL Hematocrit 39.9 % Mean Corpuscular Volume 84.5 fL Mean Corpuscular Hemoglobin 30.9 pg Mean Corpuscular Hemoglobin Concent 36.6 g/dl Platelet Count 156 K/uL Mean Platelet Volume 8.9 fL Neutrophils (%) (Auto) 65.5 % Lymphocytes (%) (Auto) 24.4 % Monocytes (%) (Auto) 9.0 % Eosinophils (%) (Auto) 0.7 % Basophils (%) (Auto) 0.1 % Neutrophils # (Auto) 4.88 K/uL Lymphocytes # (Auto) 1.82 K/uL Monocytes # (Auto) 0.67 K/uL Eosinophils # (Auto) 0.05 K/uL Basophils # (Auto) 0.01 K/uL RDW Standard Deviation 40.0 fL RDW Coefficient of Variation 13.0 % Immature Granulocyte % (Auto) 0.3 % Immature Granulocyte # (Auto) 0.02 K/uL Sodium Level 138 mmol/L Potassium Level 3.8 mmol/L Chloride Level 106 mmol/L Carbon Dioxide Level 26 mmol/L Anion Gap 7.0 mmol/L Blood Urea Nitrogen 14 mg/dl Creatinine 0.97 mg/dl Est Creatinine Clear Calc Drug Dose 82.0 ml/min Estimated GFR () 98.6 Estimated GFR (Non- 85.1 BUN/Creatinine Ratio 14.9 Random Glucose 95 mg/dl Calcium Level 8.8 mg/dl (Lissa Riley PA-C) Diagnostic Results Echocardiogram: Interpretation Summary * Name: KRISTINA VALLE Study Date: 06/19/2017 12:48 PM BP: 135/84 mmHg * [place] [facility] [place]S\\1 HR: 66 * : 1960 (M/d/yyyy) Gender: Male Height: 69 in * Age: 57 yrs Ethnicity: [place] Weight: 168 lb * Ordering Physician: Harjeet Cormier * Referring Physician: Self, Referred * Performed By: Harsh Sauceda RDCS * * Reason For Study: AMI * BSA: 1.9 m2 * -- Conclusions -- * Left ventricular systolic function is moderately reduced. * Spontaneous contrast is noted consistent with low flow state. * There are regional wall motion abnormalities as specified. * Right ventricular systolic pressure is normal. Procedure Details * A complete two-dimensional transthoracic echocardiogram was performed (2D, M-mode, Doppler and color flow Doppler). * The study was technically difficult, but visualization was adequate with the administration of Definity ultrasound contrast. * A contrast injection of Definity was performed to improve assessment for apical thrombus. * Contrast was injected into an intravenous site in the right arm. * One vial of Definity ultrasound contrast was diluted in normal saline to a total volume of 10 ml. A total of '6' ml of solution was administered during imaging. * Lot # [id number] of Definity utilized for procedure. * Expiration date . * The attending nurse who injected the contrast agent was Francoise Contreras RN. Left Ventricle * The left ventricle is normal in size. * Spontaneous contrast is noted consistent with low flow state. * There is normal left ventricular wall thickness. * Left ventricular systolic function is moderately reduced. * Ejection Fraction = 30-35%. * There are regional wall motion abnormalities as specified. * There is akinesis of the distal anterior wall, septum and apex. Right Ventricle * The right ventricle is normal in size and function. * The right ventricular systolic function is normal as assessed by tricuspid annular plane systolic excursion (TAPSE) (normal >1.5 cm). Atria * The left atrial size is normal. * Right atrial size is normal. Mitral Valve * The mitral valve anatomy is normal. * Significant mitral regurgitation is absent. Tricuspid Valve * The tricuspid valve is not well visualized, but is grossly normal. * There is trace tricuspid regurgitation. * Right ventricular systolic pressure is normal. Aortic Valve * The aortic valve is normal in structure and function. * The aortic valve is trileaflet. * No hemodynamically significant valvular aortic stenosis. * There is no significant aortic regurgitation. Pulmonic Valve * The pulmonic valve is not well visualized. Great Vessels * The aortic root is normal size. Pericardium/Pleural * Trace pericardial effusion Great Vessels * Normal inferior vena cava diameter and respiratory variation suggests normal central venous pressure. 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 Muñoz on 06/18/17, where 1 INGRID was placed in the mid LAD. STEMI s/p 1 cardiac stent to mid LAD--stable - Transferred to telemetry. No acute events overnight. Pt in sinus rhythm with HR 60s-90s - Cardiology following, appreciate recs: Spoke with Dr. Muñoz. Pt has high risk for developing LV thrombus. Will continue AC with Eliquis. Continue DAPT. Continue beta dougie, CHELSEA and high intensity statin. Discussed possible life vest--as LV function looks closer to 40% and electrically stable on tele, will hold off for now. Continue to monitor on tele overnight, plan for discharge tomorrow. - Echo shows EF 30-35% (per Dr. Muñoz likely closer to 40-45%). Akinesis of distal anterior wall, septum and apex. - Lisinopril decreased to 2.5 mg PO qd due to hypotension - Continue Lopressor 12.5 mg PO BID, lisinopril as above, ASA, Brilinta 90 mg PO BID, Lipitor 80 mg PO qd - Troponin peaked at 146, trending down - Carotid dopplers reviewed and are negative for stenosis. - Cardiac rehab and close follow up as outpt, may have issues with med compliance. Discussed importance of medical therapy with patient, he states he will comply - Lipid panel and A1c WNL - Encouraged to watch sodium intake, especially given low EF Chronic Tobacco Use - Risk factors include chewing tobacco 1/2 can per day - cessation encouraged, currently pt denies need for nicotine replacement DVT prophylaxis -Eliqusriniavsa Dispo -Likely d/c in 1 day (Lissa Riley ., PAOxanaC) Attending Attestation - Pt seen/examined, chart reviewed, care plan d/w ERIKA Riley. I agree w/ the cruz components of her documentation. Tele normal overnight No substernal/anginal chest pain. No dyspnea. c/o "sore" on his outer right hip that he saw this am. asks multiple questions about diet/salt intake VSS afebrile gen - nad neck - no jvd heart - rrr, s1, s2, no murmur lungs - CTA b/l abd - soft, NT ext - no edema vascular - right radial artery w/o hematoma skin - likely sebaceous cyst of right lateral hip, about 2cm in diameter, with central pustule echo EF 30-35% with wall motion abnormalities of anterior wall A/P: STEMI 2nd to 100% occluded LAD s/p INGRID by Dr. 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
[2017-06-20] MEDS: APIXABAN 2.5 MG TAB PO SCH ×2 (14:50→21:34)
[2017-06-20] MEDS: MUPIROCIN 2% OINT 22 GM TUBE EXT SCH ×2 (15:30→21:35)
[2017-06-21] MEDS ORDERED: ENOXAPARIN 80 MG/0.8 ML SYR SQ SCH
[2017-06-21 03:50] VITALS: BP 103/66; PULSE 71; TEMP 36.9; O2SAT 97
[2017-06-21 06:21] LABS: BASO % 0.1 %; BASO ABS # 0.01 K/uL (0-0.2); EOS % 0.7 %; EOS ABS # 0.06 K/uL (0-0.5); HEMATOCRIT 40.3 % (42-52); HEMOGLOBIN 14.8 g/dL (14.0-18.0); IG# 0.02 K/uL (0.00-0.02); LYMPH ABS # 2.06 K/uL (1.2-3.4); MEAN CELL VOLUME 84.1 fL (80-100); MEAN CORPUSCULAR HEMOGLOBIN 30.9 pg (25-34); MEAN CORPUSCULAR HGB CONC 36.7 g/dl (32-36); MONO % 10.1 %; MONO ABS # 0.87 K/uL (0.11-0.59); NEUT % 64.9 %; NEUT ABS # 5.57 K/uL (1.4-6.5); PLATELET COUNT 189 K/uL (130-400); RED CELL DISTRIBUTION WIDTH CV 12.9 % (11.5-14.5); RED CELL DISTRIBUTION WIDTH SD 39.1 fL (36.4-46.3); WHITE BLOOD COUNT 8.59 K/uL (4.8-10.8)
[2017-06-21 06:39] LABS: CALCIUM 8.8 mg/dl (8.5-10.1); CREATININE 1.03 mg/dl (0.60-1.40); POTASSIUM 3.9 mmol/L (3.5-5.1)
[2017-06-21 07:57] VITALS: BP 118/71; PULSE 68; TEMP 36.6; O2SAT 97
[2017-06-21 08:05] VITALS: BP 121/81; PULSE 84
[2017-06-21] MEDS: ASPIRIN 81 MG ECTAB PO SCH (08:05)
[2017-06-21] MEDS: MUPIROCIN 2% OINT 22 GM TUBE EXT SCH ×2 (08:05→13:20)
[2017-06-21] MEDS: TICAGRELOR 90 MG TAB PO SCH (08:05)
[2017-06-21] MEDS: METOPROLOL TARTRATE 25 MG TAB PO SCH (08:06)
[2017-06-21] MEDS: LISINOPRIL 2.5 MG TAB PO SCH (08:06)
[2017-06-21] MEDS: APIXABAN 2.5 MG TAB PO SCH (08:06)
[2017-06-21] MEDS: ATORVASTATIN 40 MG TAB PO SCH (08:06)
[2017-06-21] MEDS ORDERED: PANTOprazole SOD 40 MG TAB PO SCH (09:00)
[2017-06-21 11:27] VITALS: BP 104/69; PULSE 66; TEMP 36.7; O2SAT 95
[2017-06-21 13:16] VITALS: BP 104/69; PULSE 66; TEMP 36.7; O2SAT 95
[2017-06-21] MEDS ORDERED: APIX1TAB3 PO (14:03)
[2017-06-21] MEDS ORDERED: ATOR-26 PO (14:03)
[2017-06-21] MEDS ORDERED: ASPI-320 PO (14:03)
[2017-06-21] MEDS ORDERED: LSN25 PO (14:03)
[2017-06-21] MEDS ORDERED: BRL90 PO (14:03)
[2017-06-21] MEDS ORDERED: BCTRO EXT (14:03)
[2017-06-21] MEDS ORDERED: LPR25 PO (14:03)
[2017-06-21] MEDS ORDERED: NTRSLP4 SL (14:03)
--- NOTE | 2017-06-21 14:10 | Discharge Instructions ---
Discharge Instructions Date of Service June 21, 2017. Admission Reason for Admission: Acute Anterior Wall Mi Discharge Discharge Diagnosis / Problem: Acute myocardial infarction (heart attack) Discharge Goals Goal(s): Decrease discomfort, Improve function, Diagnostic testing, Therapeutic intervention Activity Recommendations Activity Limitations: per Instructions/Follow-up section . Instructions / Follow-Up Instructions / Follow-Up You were admitted to the hospital with chest pain and found to have an acute heart attack. You were found to have complete blockage of your left anterior descending coronary artery. A coronary artery stent was placed to keep this artery open. You have been started on several medications to help reduce your cardiovascular risk and protect your heart. You are now medically stable for discharge. Medications: *Please take aspirin 81 mg daily and Brilinta (ticagrelor) 90 mg TWICE daily. These are antiplatelet medications that you will need to take for the first year following your stent placement. *Please take Eliquis (apixaban) 5 mg TWICE daily. This is an anticoagulant ( blood thinner). Following your heart attack, your echocardiogram shows your heart is not moving/pumping as well as it was, and you are at a high risk of developing a clot in the heart, which could then go the brain and cause a stroke. You will have a repeat echocardiogram in about a month or so to see if the function is improved. The anticoagulant may only be temporary, but continue this medication until cardiology tells you to stop. *Please take Lipitor (atorvastatin) 80 mg daily. You may take this at nighttime. This is a cholesterol medication. *Please take lisinopril 2.5 mg (1 tablet) daily and Lopressor (metoprolol tartrate) 12.5 mg (0.5 tablet) TWICE daily. These mediations are for your blood pressure and heart. *You may take nitroglycerin 0.4 mg sublingually (under the tongue) as needed for chest pain. You may take 1 tablet every 5 minutes, up to 3 doses if you have chest pain. *Please apply Bactroban (mupirocin) cream to the wound on your right hip three times a day for the next 10 days. Follow up: *You have been scheduled to follow up with your primary care office this Tuesday and cardiology next week. It is important to attend all of your follow up appointments. Recommendations: *Please see the instructions below regarding your activity. Cardiology will also clear you for resuming your normal activities. For now, please take it easy. Heart attack instructions: Home Care: * Take your medications exactly as directed. Don't skip doses. * Remember that recovery after a heart attack takes time. Plan to rest for at lease 4-8 weeks while you recover. Then return to normal activity when your doctor says it's okay. * Ask your doctor about joining a heart rehabilitation program. * Tell your doctor if you are feeling depressed. Feelings of sadness are common after a heart attack, but it is important that you speak to someone if you are feeling overwhelmed by these feelings. * If you are having chest pain, call 911 for an ambulance. Do NOT drive yourself to the hospital. * Ask your family members to learn CPR. * Learn to take your own blood pressure and pulse. Keep a record of your results. Ask your doctor when you should seek emergency medical attention. He or she will tell you which blood pressure reading is dangerous. Lifestyle Changes: * Maintain a healthy weight. Get help to lose any extra pounds. * Cut back on salt. * Limit canned, dried, packaged, and fast foods. * Don't add salt to your food. * Season foods with herbs instead of salt when you cook. * Break the chewing habit/quit all tobacco. * Limit fatty foods. * Ask your doctor about having your lipid levels checked regularly. * Build up your activity according to your doctor's recommendation. * Ask your doctor when it's okay to resume sexual activity. * Tell your doctor about any erectile dysfunction (ED) medication you are taking. Some ED medications are not safe if you take certain heart medications. * Try to manage stress. Post cardiac catheterization recommendations: ACTIVITY RECOMMENDATIONS: Excess manipulation of the wrist should be avoided for the next 24-48 hours. * No lifting over 2 pounds (approximately a 1/2 gallon of milk) with the utilized arm for 24 hours. * No strenuous activity such as bowling or tennis for 3 days. *You may shower. Do not take a tub bath or submerge the puncture site in water for the next 3 days. *Do not operate any motorized equipment for 3 days. SPECIAL CARE INSTRUCTIONS: The site may be slightly bruised and sore following your procedure. Should any of the following occur, contact the DrRod who performed your procedure (Dr. Muñoz). 1. Redness/inflammation, swelling, chills, or fever, or colored drainage at procedure site within 3-7 days after your procedure. 2. Coldness, discoloration, ongoing numbness, severe pain, or swelling. Expect mild tingling of hand and tenderness at the puncture site for up to three days. If this persists beyond three days, or other symptoms develop, notify the Dr. who performed your procedure. BLEEDING: If the procedure site on your wrist begins to bleed, do not panic 1. Place 1 or 2 fingers firmly just slightly above the insertion site to stop the bleeding. You may be able to feel your pulse as you hold pressure. 2. Lift your finger after 5 minutes to see if the bleeding has stopped. 3. Once the bleeding has stopped, gently wipe the wrist area clean with a bandage. * If the bleeding from your wrist does not stop after 10 minutes, or if there is a large amount of bleeding or spurting, call 911 (do not drive yourself to the hospital). SKIN IRRITATION: * You may experience some redness and/or swelling in the area where radiation was administered. If any skin irritation occurs, please contact your family physician. Congestive heart failure recommendations (reduced ejection fraction of the heart ): Call 911 and go to the Emergency Room if: * You have tightness or pain in your chest that does not go away with rest or Nitroglycerin * You are very short of breath even with rest Call your doctor if any of the following symptoms or problems start or get worse: * Shortness of breath or difficulty breathing * Wake up at night short of breath * Chest pain * Cough * Swelling of your hands, fee, or legs * More fatigued or tired with your normal activity * Palpitations - sudden fast heart beats WEIGHT * Weigh yourself every morning after using the bathroom. * Use the same scale. * Wear the same amount of clothing. * Write your weight down on your chart. * Call your doctor if you gain more than 2-3 pounds in 1-2 days. MEDICATIONS * Use this discharge instruction sheet for instructions. * Take your medications at the time your doctor ordered. * Do not skip a dose of your medicines. * If you miss a dose of medicine, take as soon as possible, but DO NOT DOUBLE A DOSE. * Read your medicine information when you get home. * Know all of the side effects of your medicine. * Call your doctor's office if you have any side effects. * Be sure all of your doctors know what medicine and herbs you take (including cold, flu, and herbal medicine). * Pain Medicine: If you do not get relief from your pain, please call your doctor for help. Take the following with you to your follow-up doctor appointments: * Weight Chart * Medication List * List of questions Do not drink excessive alcohol, beer or wine. Current Hospital Diet Patient's current hospital diet: AHA Diet (Heart Healthy) Discharge Diet Recommended Diet: AHA Diet (Heart Healthy) Procedures Procedures Performed: Cardiac catheterization with stent placement in left anterior descending artery Pending Studies Studies pending at discharge: no Laboratory Results Hemoglobin A1c Test 06/19/17 04:05 Range/Units Estimated Average Glucose 94 mg/dl Hemoglobin A1c 4.9 4.5-5.6 % Lipid Panel Test 06/19/17 06:04 Range/Units Triglycerides Level 96 0-150 mg/dl Cholesterol Level 185 0-200 mg/dl HDL Cholesterol 40 mg/dl Cholesterol/HDL Ratio 4.6 LDL Cholesterol, Calculated 126 mg/dl Medical Emergencies . Who to Call and When: Medical Emergencies: If at any time you feel your situation is an emergency, please call 911 immediately. Call 911 immediately or go to your nearest Emergency Room if you experience any of the following: Warning Signs and Symptoms of a Heart Attack * Chest pain that is not relieved by medication * Shortness of breath . Non-Emergent Contact Non-Emergency issues call your: Primary Care Provider, Instrument Man Call Non-Emergent contact if: you have a fever, your pain is not controlled, your pain is worsening, your pain is unusual for you, your pain is concerning you, wound has increased drainage, wound has increased redness, wound has increased pain, you have any medication questions . Past History Medical & Surgical History: (1) Acute anterior wall ME . "Provider Documentation" section prepared by Lissa Riley. . AMI Core Measures Reason no ASA as I/P: Treatment provided - N/A Reason no ASA at D/C: Treatment provided - N/A Reason no statin as I/P: Treatment provided - N/A Reason no statin at D/C: Treatment provided - N/A
--- NOTE | 2017-06-21 14:29 | Cardiology Follow-Up ---
Subjective Subjective Date of Service: June 21, 2017. Pt evaluation today including: conversation w/ patient, conversation w/ family , physical exam, lab review, review of studies, conversation w/ wallpaper consultant, review of inpatient medication list Additional Details: Feeling well. No recurrent chest pain. No significant shortness of breath. Endorses persistent cough. Telemetry reviewed--no events Problem List Medical Problems: (1) Acute anterior wall LA Status: Acute Review of Systems Constitutional: No fever, No chills ENT: + sore throat Respiratory: + cough, + sputum Abdomen: No pain, No nausea Male : No dysuria Heme: No abnormal bleeding/bruising Skin: No rash Objective Vital Signs Last Vital Signs Documentation Date Time Temp Pulse Resp B/P (MAP) Pulse Ox O2 Delivery O2 Flow Rate FiO2 06/21/17 13:16 36.7 66 18 95 Room Air 06/21/17 11:27 104/69 (81) 06/19/17 13:50 2.0 06/19/17 12:00 96 Physical Exam: General Appearance: no apparent distress ENT: normal ENT inspection Neck: no JVD Respiratory/Chest: lungs clear, normal breath sounds, no respiratory distress Cardiovascular: regular rate, rhythm, no edema, no murmur, + pertinent finding (right radial artery -- intact distal pulse and sensation; mild resolving ecchymosis. ) Abdomen: normal bowel sounds, non tender, soft Extremities: no pedal edema, no calf tenderness Neurologic/Psychiatric: no motor/sensory deficits, alert, normal mood/affect Assessment and Plan 1. Anterior STEMI -- PPCI to mid LAD with single INGRID 2. Moderate residual proximal LAD disease. 3. ICM - EF 35-40%, apical akinesis. 4. Dyslipidemia 5. Occasional PVCs 6. Trace pericardial effusion/? pericarditis No recurrent chest. Hemodynamically and electrically stable. From a cardiac standpoint okay for discharge today. Discharged home on: --aspirin 81 mg --ticagrelor 90 mg b.i.d. --apixaban 5 mg b.i.d. --metoprolol 12.5 mg b.i.d. --lisinopril 2.5 mg daily --atorvastatin 80 mg daily Will plan to see patient back in 2 weeks. That time discuss cardiac rehab. If continues to diffuse joint pain consider transition of statins. If cough persists consider changing Devin to ARB. Echo in 1 to assess apical function question possible discontinuation [facility] care. Medications: Current Inpatient Medications Medications (Trade) Dose Ordered Sig/Libby Route Start Time Stop Time Status Last Admin Dose Admin Nitroglycerin (Nitrostat Tab) 0.4 mg UD PRN SL 06/18/17 13:15 07/18/17 13:14 Ondansetron HCl (Zofran Inj) 4 mg Q6H PRN IV 06/18/17 13:15 07/18/17 13:14 Aspirin (Ecotrin Tab) 81 mg QAM PO 06/19/17 09:00 07/19/17 08:59 06/21/17 08:05 81 MG Atorvastatin Calcium (Lipitor Tab) 80 mg QAM PO 06/19/17 09:00 07/19/17 08:59 06/21/17 08:06 80 MG Metoprolol Tartrate (Lopressor Tab) 12.5 mg Q12 PO 06/18/17 21:00 07/18/17 20:59 06/21/17 08:06 12.5 MG Ticagrelor (Brilinta Tab) 90 mg BID PO 06/18/17 21:00 07/18/17 20:59 06/21/17 08:05 90 MG Acetaminophen (Tylenol Tab) 650 mg Q4H PRN PO 06/18/17 20:15 07/18/17 20:14 06/19/17 06:50 650 MG Morphine Sulfate (MoRPHine SULFATE INJ) 2 mg Q2H PRN IV 06/18/17 20:15 07/02/17 20:14 Lisinopril (Zestril Tab) 2.5 mg QAM PO 06/20/17 09:00 07/19/17 08:59 06/21/17 08:06 2.5 MG Apixaban (Eliquis Tab) 5 mg BID PO 06/20/17 13:45 07/20/17 13:44 06/21/17 08:06 5 MG Pantoprazole Sodium (Protonix Tab) 40 mg QAM PO 06/21/17 09:00 06/24/17 09:01 06/21/17 08:07 40 MG Mupirocin (Bactroban 2% Oint) 1 appln TID EXT 06/20/17 14:00 07/20/17 13:59 06/21/17 13:20 1 APPLN Lab Results: 06/21/17 05:45 Red Blood Count 4.79, Mean Corpuscular Volume 84.1, Mean Corpuscular Hemoglobin 30.9, Mean Corpuscular Hemoglobin Concent 36.7, Mean Platelet Volume 9.0, Neutrophils (%) (Auto) 64.9, Lymphocytes (%) (Auto) 24.0, Monocytes (%) (Auto) 10.1, Eosinophils (%) (Auto) 0.7, Basophils (%) (Auto) 0.1, Neutrophils # (Auto ) 5.57, Lymphocytes # (Auto) 2.06, Monocytes # (Auto) 0.87, Eosinophils # (Auto ) 0.06, Basophils # (Auto) 0.01 06/21/17 05:45 Test 06/21/17 05:45 White Blood Count 8.59 K/uL (4.8-10.8) Red Blood Count 4.79 M/uL (4.7-6.1) Hemoglobin 14.8 g/dL (14.0-18.0) Hematocrit 40.3 % (42-52) Mean Corpuscular Volume 84.1 fL (80-100) Mean Corpuscular Hemoglobin 30.9 pg (25-34) Mean Corpuscular Hemoglobin Concent 36.7 g/dl (32-36) Platelet Count 189 K/uL (130-400) Mean Platelet Volume 9.0 fL (7.4-10.4) Neutrophils (%) (Auto) 64.9 % Lymphocytes (%) (Auto) 24.0 % Monocytes (%) (Auto) 10.1 % Eosinophils (%) (Auto) 0.7 % Basophils (%) (Auto) 0.1 % Neutrophils # (Auto) 5.57 K/uL (1.4-6.5) Lymphocytes # (Auto) 2.06 K/uL (1.2-3.4) Monocytes # (Auto) 0.87 K/uL (0.11-0.59) Eosinophils # (Auto) 0.06 K/uL (0-0.5) Basophils # (Auto) 0.01 K/uL (0-0.2) RDW Standard Deviation 39.1 fL (36.4-46.3) RDW Coefficient of Variation 12.9 % (11.5-14.5) Immature Granulocyte % (Auto) 0.2 % Immature Granulocyte # (Auto) 0.02 K/uL (0.00-0.02) Anion Gap 9.0 mmol/L (3-11) Est Creatinine Clear Calc Drug Dose 77.3 ml/min Estimated GFR () 91.7 Estimated GFR (Non- 79.1 BUN/Creatinine Ratio 18.2 (10-20) Calcium Level 8.8 mg/dl (8.5-10.1)
--- NOTE | 2017-06-21 16:02 | Discharge Summary ---
Discharge Summary Date of Service June 21, 2017. Discharge Summary Admission Date: June 18, 2017 at 13:17 Discharge Date: June 21, 2017 Discharge Disposition: Home Principal Diagnosis: Acute anterior STEMI Problems/Secondary Diagnoses: Ischemic cardiomyopathy with resulting acute systolic CHF hyperlipidemia smokeless tobacco dependence Procedures: Cardiac cath: Procedure Note Procedure Date June 18, 2017. 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 Toni [employer] Associate(s) Galina Estimated Blood Loss 15 Medication(s) Fentanyl, Heparin, Nicardipine, Nitroglycerin, Versed, Lidocaine 1% Ticagrelor Summary of Findings Indication: STEMI/Heart Alert Access: 6Fr right radial artery Catheters: EBU 3.5 guide; JR4, pigtail diagnostics Findings: LM - Short, luminal irregularities LAD - Moderate caliber vessel, 40-50% late-proximal stenosis with diffuse early- mid segment disease prior to 100% acute mid occlusion at take-off of small 2nd diagonal Circumflex - Large caliber vessel, 20% proximal disease; luminal irregularities in mid segment and large OM3. RCA - Very large caliber vessel, dominant, luminal irregularities; minimal disease in R-PDA and PLBs LVEDP - 13 LVEF 50% -- PCI -- Antithrombotic therapy: Heparin, Ticagrelor Procedure: LM cannulated with EBU 3.5 guide BMW wire passed across lesion into distal vessel Mid LAD lesion predilated with 2.5 compliant balloon Dilated lesion stented with 3.0 x 28 Xience INGRID across take-off of moderate 3rd diagonal Stent post-dilated with 3.0 noncompliant balloon IC vasodilators administered for spasm Post procedure YORDAN 3 flow, stent well expanded with minimal residual stenosis and no apparent cardiac complications. Arterial Closure: TR Band Summary: 1. Anterior STEMI/Occluded Mid LAD 2. Moderate proximal LAD disease 3. Minimal non-culprit vessel disease 4. Normal intracardiac filling pressure. Preserved LV function (LVEF 50%). 5. Successful PCI of mid LAD with single drug-eluting stent (3.0 x 28 Xience INGRID ). Recommendations: Admit to ICU for continued monitoring Loaded with Ticagrelor 180mg in laboratory miller Continue dual-antiplatelet therapy for at least 1 year. Trend troponins until peak, Check Echo Uptitrate beta-dougie/CHELSEA as BP allows High-dose statin Consult cardiac Rehab Echo: Interpretation Summary * Name: KRISTINA VALLE Study Date: 06/19/2017 12:48 PM BP: 135/84 mmHg * Patient Location: [facility] [place]\\\\[id number] HR: 66 * : 1960 (M/d/yyyy) Gender: Male Height: 69 in * Age: 57 yrs Ethnicity: CA Weight: 168 lb * Ordering Physician: Harjeet Cormier * Referring Physician: Self, Referred * Performed By: Harsh Sauceda RDCS * * Reason For Study: AMI * BSA: 1.9 m2 * -- Conclusions -- * Left ventricular systolic function is moderately reduced. * Spontaneous contrast is noted consistent with low flow state. * There are regional wall motion abnormalities as specified. * Right ventricular systolic pressure is normal. Procedure Details * A complete two-dimensional transthoracic echocardiogram was performed (2D, M-mode, Doppler and color flow Doppler). * The study was technically difficult, but visualization was adequate with the administration of Definity ultrasound contrast. * A contrast injection of Definity was performed to improve assessment for apical thrombus. * Contrast was injected into an intravenous site in the right arm. * One vial of Definity ultrasound contrast was diluted in normal saline to a total volume of 10 ml. A total of '6' ml of solution was administered during imaging. * Lot # [id number] of Definity utilized for procedure. * Expiration date . * The attending nurse who injected the contrast agent was Francoise Contreras RN. Left Ventricle * The left ventricle is normal in size. * Spontaneous contrast is noted consistent with low flow state. * There is normal left ventricular wall thickness. * Left ventricular systolic function is moderately reduced. * Ejection Fraction = 30-35%. * There are regional wall motion abnormalities as specified. * There is akinesis of the distal anterior wall, septum and apex. Right Ventricle * The right ventricle is normal in size and function. * The right ventricular systolic function is normal as assessed by tricuspid annular plane systolic excursion (TAPSE) (normal >1.5 cm). Atria * The left atrial size is normal. * Right atrial size is normal. Mitral Valve * The mitral valve anatomy is normal. * Significant mitral regurgitation is absent. Tricuspid Valve * The tricuspid valve is not well visualized, but is grossly normal. * There is trace tricuspid regurgitation. * Right ventricular systolic pressure is normal. Aortic Valve * The aortic valve is normal in structure and function. * The aortic valve is trileaflet. * No hemodynamically significant valvular aortic stenosis. * There is no significant aortic regurgitation. Pulmonic Valve * The pulmonic valve is not well visualized. Great Vessels * The aortic root is normal size. Pericardium/Pleural * Trace pericardial effusion Great Vessels * Normal inferior vena cava diameter and respiratory variation suggests normal central venous pressure. Consultations: Cardiology Medication Reconciliation New Medications: Apixaban (Eliquis) 5 Mg Tab 5 MG PO BID for 30 Days, #60 TAB Atorvastatin (Lipitor) 80 Mg Tab 1 TAB PO DAILY for 30 Days, #30 TAB Aspirin (Aspirin EC Low Dose) 81 Mg Ectab 81 MG PO QAM for 30 Days, #30 TABS Lisinopril (Lisinopril) 2.5 Mg Tab 2.5 MG PO QAM for 30 Days, #30 TAB Metoprolol Tartrate (Lopressor) 25 Mg Tab 12.5 MG PO Q12 for 30 Days, #30 TAB Mupirocin (Mupirocin) 66 Appln/22 Gm Oint 1 APPLN EXT TID for 10 Days, #1 TUBE Apply to small pustule on right hip three times a day for 10 days. Nitroglycerin (Nitrostat) 0.4 Mg/1 Tab Subl 0.4 MG SL UD PRN for Chest Pain for 30 Days, #30 TABS You may take 1 tablet under the tongue every 5 minutes x3 doses as needed for chest pain Ticagrelor (Brilinta) 90 Mg Tab 90 MG PO BID for 30 Days, #60 TAB Discharge Exam The patient reports feeling well. He continues to have a mild 2/10 "pulling" sensation in his chest with certain movements but denies any new/different chest pain. He denies shortness of breath. I went over medications and discharge instructions at length with pt and his . The patient denies fevers, chills, sweats, palpitations, claudication, cough, wheezing, shortness of breath, nausea, vomiting, abdominal pain, dysuria, hematuria, urinary retention, paralysis, weakness, numbness and tingling. Constitutional: No fever, No chills, No sweats Eyes: No worsening of vision, No eye pain, No diplopia ENT: No hearing loss, No nasal symptoms, No trouble swallowing Respiratory: No cough, No wheezing, No shortness of breath Cardiovascular: No chest pain, No claudication, No palpitations Abdomen: No pain, No nausea, No vomiting Musculoskeletal: +MSK chest pain. No joint pain, No muscle pain, No swelling Genitourinary - Male: No dysuria, No urinary retention, No hematuria Neurologic: No paralysis, No weakness, No numbness/tingling Integumentary: No rash, No itch, No color change General appearance: Well-developed, well-nourished, no apparent distress Head: Normocephalic, atraumatic Eyes: Normal inspection, PERRL, EOMI ENT: Normal ENT inspection, hearing grossly normal, pharynx normal Neck: Supple, no JVD, trachea midline Respiratory/Chest: Lungs clear to auscultation, normal breath sounds, no respiratory distress Cardiovascular: Regular rate & rhythm, no gallop, no murmur Abdomen/GI: Normal bowel sounds, non-tender, soft Extremities/Musculoskeletal: +Right wrist cath insertion site with ecchymosis. No calf tenderness, no pedal edema Neurological/Psych: Alert, normal mood/affect, oriented x 3 Skin: Normal color, warm/dry, no rash Hospital Course 57 yo male with limited past medical history including chewing tobacco 1/2 can daily since age 12, who presented for acute onset of chest pain, diagnosed with STEMI and taken to the laboratory miller by Dr. Muñoz on 06/18/17, where 1 INGRID was placed in the mid LAD. STEMI s/p 1 cardiac stent to mid LAD--stable - Transferred to telemetry. No acute events overnight. Pt in sinus rhythm with HR 60s-70s - Cardiology following, appreciate recs: Spoke with Dr. Muñoz. He is stable for discharge. Pt has high risk for developing LV thrombus. Will continue AC with Eliquis. Continue DAPT. Continue beta dougie, CHELSEA and high intensity statin. - Echo shows EF 30-35% (per Dr. Muñoz likely closer to 40-45%). Akinesis of distal anterior wall, septum and apex. - Lisinopril decreased to 2.5 mg PO qd due to hypotension - Continue Lopressor 12.5 mg PO BID, lisinopril as above, ASA, Brilinta 90 mg PO BID, Lipitor 80 mg PO qd - Eliquis 5 mg PO BID due to high risk of thrombus - Troponin peaked at 146, trending down - Carotid dopplers reviewed and are negative for stenosis. - Cardiac rehab and close follow up as outpt, may have issues with med compliance. Discussed importance of medical therapy with patient, he states he will comply - A1c WNL. Lipid panel shows LDL not at goal - Provided nitro prn chest pain Ischemic cardiomyopathy secondary to AMI, systolic CHF - Instructed on reducing sodium intake - Chief Nuclear Medicine Technologist consulted regarding this - Given CHF instructions given low EF Right hip cyst/pustule - Bactroban TID x 10 days Chronic Tobacco Use - Risk factors include chewing tobacco 1/2 can per day - cessation encouraged, currently pt denies need for nicotine replacement. encouraged cessation, will assist pt DVT prophylaxis -Eliquis Dispo -D/C to home Attending Attestation - Pt seen/examined, chart reviewed, care plan d/w ERIKA Riley. I agree w/ the cruz components of her documentation. 56yo male, previously without any major medical problems, who presented with chest pain. Initial EKG demonstrated acute anterior wall STEMI Brought to the laboratory miller by Dr. Harjeet Muñoz and 100% occluded LAD was found. Underwent successful deployment of a INGRID without complication. Post-cath the patient remained hemodynamically stable. Echo demonstrated EF of 30-35% and there was evidence of a low flow state. Therefore, systemic anticoagulation was recommended to prevent LV thrombus development. He was continued on beta dougie, aspirin, brilinta, statin, and low-dose CHELSEA. Discharge exam - gen - nad neck - no JVD heart - RRR, s1, s2, no murmur lungs - CTA b/l abd - soft, NT, no HSM ext - no edema, pulses 2+ b/l right wrist - former cath site w/o hematoma Pt will f/u with his PCP and veterans contact representative both within 2 weeks. Advised to quit smokeless tobacco usage. Chief Nuclear Medicine Technologist was consulted to provide nutritional counseling on low salt diet, etc. Niranjan Bustamante MD Total Time Spent: Greater than 30 minutes This includes examination of the patient, discharge planning, medication reconciliation, and communication with other providers. Discharge Instructions Please refer to the electronic Patient Visit Report (Discharge Instructions) for additional information. Follow-Up 1. Nighat GOMES on TuesdayJune 24 at 10:30 am. 2. [facility] Physician [facility] Cardiology Office with Joseph Pickett PA-C on June 30 at 1:30 pm. Additional Copies To Johan Grant M.D.; Harjeet Muñoz MD; Nighat Nayak CRNP; Joseph Pickett,P.A.
== END 2017-06-21 16:09 | disposition home or self-care (01) | DRG 246 ==
LOC: C.EDB 11:28 → C.MSICU 13:17 → ENRESERV 06-19 13:38 → C.MED 06-19 14:25
PROVIDERS: ADMIT Internal Medicine Interventional Cardiology; ATTEND Internal Medicine Interventional Cardiology
PROC: 4A023N7 Measurement of Cardiac Sampling and Pressure, Left Heart, Percutaneous Approach (ICD-10-PCS; principal; 2017-06-18 11:30)
PROC: 3E053PZ Introduction of Platelet Inhibitor into Peripheral Artery, Percutaneous Approach (ICD-10-PCS; principal; 2017-06-18 11:30)
PROC: 027034Z Dilation of Coronary Artery, One Artery with Drug-eluting Intraluminal Device, Percutaneous Approach (ICD-10-PCS; principal; 2017-06-18 11:30)
PROC: B2151ZZ Fluoroscopy of Left Heart using Low Osmolar Contrast (ICD-10-PCS; principal; 2017-06-18 11:30)
PROC: B2111ZZ Fluoroscopy of Multiple Coronary Arteries using Low Osmolar Contrast (ICD-10-PCS; principal; 2017-06-18 11:30)
DX: I21.09 ST elevation (STEMI) myocardial infarction involving other coronary artery of anterior wall (principal); I50.21 Acute systolic (congestive) heart failure; I25.10 Atherosclerotic heart disease of native coronary artery without angina pectoris; I25.5 Ischemic cardiomyopathy; E78.5 Hyperlipidemia, unspecified; F17.220 Nicotine dependence, chewing tobacco, uncomplicated; Z82.49 Family history of ischemic heart disease and other diseases of the circulatory system; L72.3 Sebaceous cyst